=== PATIENT | female | born 1965 | race Caucasian/White ===

== ENCOUNTER 2016-11-01 08:27 | Emergency (ER) | payer OTHER ==
[2016-11-01 08:44] VITALS: PULSE 84
[2016-11-01 08:50] VITALS: RESP 16
[2016-11-01] MEDS ORDERED: KETOROLAC 60 MG/2 ML VIAL IM STA (09:04)
--- NOTE | 2016-11-01 09:09 | ED ---
Lower Extremity Injury HPI - General Chief Complaint: Extremity Injury, Lower Stated Complaint: Knee pain Time Seen by Provider: 11/01/16 08:40 Source: patient, RN notes reviewed Mode of arrival: wheelchair Limitations: no limitations - History of Present Illness Initial Comments: Patient is a 51-year-old female presents to the emergency room for evaluation of right knee pain. Patient states she has a history of arthritis in both her knees. Patient states she had a left knee replacement by Dr. Matamoros. Patient states that she was at work yesterday she felt a sharp pain behind her knee that caused her knee to buckle. Patient states she has been having pain behind her patella ever since. Patient states she has been taking Aleve with no relief of symptoms. Patient denies any numbness or tingling in her toes. Patient denies any certain injury before the pain began. Patient denies any increased swelling or bruising. Patient states it's very tender on palpation. - Related Data Home Medications Medication Instructions Recorded Confirmed [id number] Acid 3 cap PO DAILY 11/01/16 11/01/16 [-U Capsule (formulary)] Previous Rx's Medication Instructions Recorded Naproxen [Naprosyn] 500 mg PO Q12HR PRN #20 tab 11/01/16 Allergies Allergy/AdvReac Type Severity Reaction Status Date / Time metal Allergy Swelling Uncoded 11/01/16 08:44 Review of Systems ROS Statement: Those systems with pertinent positive or pertinent negative responses have been documented in the HPI. ROS Other: All systems not noted in ROS Statement are negative. Past Medical History Additional Past Medical History / Comment(s): eczema, anemia History of Any Multi-Drug Resistant Organisms: None Reported Additional Past Surgical History / Comment(s): left knee replacement, fibroid tumor removal Past Psychological History: No Psychological Hx Reported Smoking Status: Never smoker Past Alcohol Use History: None Reported Past Drug Use History: None Reported General Exam - General Exam Comments Initial Comments: Sitting in exam room, no acute distress. Limitations: no limitations General appearance: alert, in no apparent distress Head exam: Present: atraumatic, normocephalic, normal inspection Eye exam: Present: normal appearance ENT exam: Present: normal exam Neck exam: Present: normal inspection Respiratory exam: Absent: respiratory distress Right Upper Leg exam: Present: normal inspection Knee exam: Present: normal inspection, full ROM, tenderness (Tenderness on palpating over anterior patella). Absent: swelling, deformity, crepitus Lower Leg exam: Present: normal inspection Neurovascular tendon exam: Present: no vascular compromise. Absent: pulse deficit (2+ dorsal pedal and posterior tibial pulses), abnormal cap refill ( Capillary refill less than 2 seconds) Back exam: Present: normal inspection Neurological exam: Present: alert, oriented X3, CN II-XII intact, normal gait Psychiatric exam: Present: normal affect, normal mood Skin exam: Present: warm, dry, intact, normal color. Absent: rash Course Vital Signs 11/01/16 11/01/16 11/01/16 08:38 08:46 09:58 Temperature 96.7 F L 96.7 F L 97.4 F L Pulse Rate 84 84 84 Respiratory 18 16 16 Rate Blood Pressure 159/84 159/84 135/79 O2 Sat by Pulse 99 99 100 Oximetry Medical Decision Making - Medical Decision Making Patient is a 51-year-old female presents emergency room for evaluation of right knee pain. Right knee x-ray suggestive of arthritis. Patient placed in an Bennie wrap and advised to follow-up with her surgeon or office specialist on- call. Patient states she understands everything that was discussed with her. Return parameters discussed. Case discussed with Dr. Eric. - Radiology Data Radiology results: report reviewed, image reviewed Disposition Clinical Impression: Osteoarthritis of right knee Disposition: HOME SELF-CARE Condition: Good Instructions: Osteoarthritis (ED) Additional Instructions: Ice on and off for 10-15 minutes for the next 24-48 hours. Take Tylenol or Motrin as needed for pain. Please follow-up with office specialist for further evaluation. If new symptoms develop or symptoms worsen, please return to the ER. Prescriptions: Naproxen [Naprosyn] 500 mg PO Q12HR PRN #20 tab PRN Reason: Pain Referrals: Michael Brunson MD [Primary Care Provider] - 1-2 days Dann Wiley MD [STAFF PHYSICIAN] - 1-2 days Time of Disposition: 09:49
--- NOTE | 2016-11-01 09:28 | XR ---
EXAMINATION TYPE: XR knee complete RT DATE OF EXAM ORDERED: 11/01/2016 HISTORY: Pain. COMPARISON: None. FINDINGS: There is peaking of intercondylar spines. There is medial joint space loss. There is remod eling change in the medial compartment as well as the patellofemoral joint. No definite joint effusio n is seen. No acute osseous lesion is seen. IMPRESSION: MODERATE OSTEOARTHRITIS.
[2016-11-01 09:59] VITALS: BP 135/79; TEMP 97.4
== END 2016-11-01 10:08 | disposition home or self-care (01) ==
LOC: EC 08:27
DX: M17.11 Unilateral primary osteoarthritis, right knee (principal); Z79.899 Other long term (current) drug therapy; Z91.09 Other allergy status, other than to drugs and biological substances
CPT/HCPCS: 73562; 99283; 96372; J1885

== ENCOUNTER 2017-09-24 14:36 | Emergency (ER) | payer OTHER ==
[2017-09-24 14:42] VITALS: RESP 18
[2017-09-24] MEDS ORDERED: SODIUM CHLORIDE 0.9% 500 ML IV STA (14:47)
[2017-09-24 15:07] LABS: Basophils % (A) 0 %; Eosinophils # (A) 0.2 k/uL (0-0.7); Eosinophils % (A) 2 %; HCT 41.4 % (34.0-46.0); HGB 13.2 gm/dL (11.4-16.0); Lymphocytes # (A) 2.7 k/uL (1.0-4.8); Lymphocytes % (A) 31 %; MCH 25.1 pg (25.0-35.0); MCV 78.4 fL (80.0-100.0); Monocytes # (A) 0.5 k/uL (0-1.0); Monocytes % (A) 5 %; Neutrophils # (A) 5.2 k/uL (1.3-7.7); Neutrophils % (A) 60 %; Platelet Count 326 k/uL (150-450); RBC 5.27 m/uL (3.80-5.40); RDW 14.8 % (11.5-15.5); WBC 8.8 k/uL (3.8-10.6)
[2017-09-24 15:09] LABS: Appearance,Urine Clear (Clear); Bacteria,Urine Rare /hpf; Bilirubin,Urine Negative (Negative); Blood,Urine Negative (Negative); Color,Urine Yellow; Glucose,Urine (UA) Negative (Negative); Hyaline Casts,Urine 4 /lpf (0-2); Ketones,Urine 1+ (Negative); Leukocyte Esterase,Urine Trace (Negative); Mucus,Urine Few /hpf; Nitrite,Urine Negative (Negative); PH, Urine 5.5 (5.0-8.0); Protein,Urine Trace (Negative); RBC,Urine 2 /hpf (0-5); Specific Gravity,Urine 1.029 (1.001-1.035); Squamous Epithelial Cell,Urine 2 /hpf (0-4); Urobilinogen,Urine <2.0 mg/dL (<2.0); WBC,Urine 2 /hpf (0-5)
--- NOTE | 2017-09-24 15:14 | XR ---
EXAMINATION TYPE: XR KUB DATE OF EXAM: 09/24/2017 COMPARISON: NONE HISTORY: Abdominal pain TECHNIQUE: One view abdominal series FINDINGS: The osseous structures are intact. The bowel gas pattern is nonspecific. Calcification pelvis is non specific but likely vascular. Air seen throughout both large and small bowel loops in a nonspecific p attern. Arthropathy of the hips. Correlate for femoral acetabular impingement.. IMPRESSION: 1. Nonspecific abdomen. Air is seen throughout both large and small bowel loops in a nonspecific pat tern. Correlate for ileus or enteritis.
[2017-09-24 15:20] LABS: Partial Thromboplastin Time 23.1 sec (22.0-30.0); Prothrombin Time 10.1 sec (9.0-12.0)
[2017-09-24 15:21] LABS: ALT 23 U/L (9-52); AST 24 U/L (14-36); Albumin 3.2 g/dL (3.5-5.0); Alkaline Phosphatase 80 U/L (38-126); Amylase 71 U/L (30-110); Anion Gap 11 mmol/L; Blood Urea Nitrogen 18 mg/dL (7-17); Calcium 8.9 mg/dL (8.4-10.2); Carbon Dioxide 23 mmol/L (22-30); Chloride 109 mmol/L (98-107); Glucose 97 mg/dL (74-99); Lipase 66 U/L (23-300); Potassium 4.2 mmol/L (3.5-5.1); Sodium 143 mmol/L (137-145); Total Bilirubin 0.2 mg/dL (0.2-1.3); Total Protein 5.6 g/dL (6.3-8.2)
--- NOTE | 2017-09-24 15:30 | ED ---
Abdominal Pain HPI - General Chief Complaint: Abdominal Pain Stated Complaint: ABDOMINAL PAIN Time Seen by Provider: 09/24/17 14:45 Source: patient, EMS, RN notes reviewed Mode of arrival: EMS Limitations: no limitations - History of Present Illness Initial Comments: This is a 52-year-old female presents emergency Department with complaints of intermittent abdominal pain and cramping. She states it started while giving plasma today. Patient states that she's been having some her symptoms after giving plasma the last month. She states that she's never had any issues like this in the past. She does state loss or far she's had some diarrhea abdominal cramping bloating. Patient doesn't dysuria no hematuria. She states that she' s had no abdominal issues in the past. She denies any current chest pain, shortness breath, headache, dizziness. She states that she went to her primary care physician if she is having issues earlier this month and states that she had a normal workup which included EKG, lab work. Patient denies any other symptoms at this time. - Related Data Home Medications Medication Instructions Recorded Confirmed No Known Home Medications [No 09/24/17 09/24/17 Known Home Medications] Allergies Allergy/AdvReac Type Severity Reaction Status Date / Time metal Allergy Swelling Uncoded 09/24/17 14:39 Review of Systems ROS Statement: Those systems with pertinent positive or pertinent negative responses have been documented in the HPI. ROS Other: All systems not noted in ROS Statement are negative. Past Medical History Additional Past Medical History / Comment(s): eczema, anemia History of Any Multi-Drug Resistant Organisms: None Reported Additional Past Surgical History / Comment(s): left knee replacement, fibroid tumor removal Past Psychological History: No Psychological Hx Reported Smoking Status: Never smoker Past Alcohol Use History: None Reported Past Drug Use History: None Reported General Exam Limitations: no limitations General appearance: alert, in no apparent distress Head exam: Present: atraumatic, normocephalic, normal inspection Eye exam: Present: normal appearance, PERRL, EOMI. Absent: scleral icterus, conjunctival injection, periorbital swelling ENT exam: Present: normal exam, normal oropharynx, mucous membranes moist Neck exam: Present: normal inspection, full ROM. Absent: tenderness, meningismus, lymphadenopathy Respiratory exam: Present: normal lung sounds bilaterally. Absent: respiratory distress, wheezes, rales, rhonchi, stridor Cardiovascular Exam: Present: regular rate, normal rhythm, normal heart sounds. Absent: systolic murmur, diastolic murmur, rubs, gallop, clicks GI/Abdominal exam: Present: soft, tenderness (Mild diffuse no localized bone tenderness), hyperactive bowel sounds. Absent: distended, guarding, rebound, rigid Back exam: Absent: CVA tenderness (R), CVA tenderness (L) Skin exam: Present: warm, dry, intact, normal color. Absent: rash Course Vital Signs 09/24/17 14:39 Temperature 97.9 F Pulse Rate 86 Respiratory 18 Rate Blood Pressure 148/86 O2 Sat by Pulse 100 Oximetry Medical Decision Making - Medical Decision Making 52-year-old female presents from for abdominal cramping gas. Patient has normal lab work, x-ray consistent with enteritis. Patient's symptom or worsened by donated plasma this time. Patient will follow-up with PCP return parameters were discussed. - Lab Data Result diagrams: 09/24/17 14:42 09/24/17 14:42 Lab Results 09/24/17 09/24/17 09/24/17 Range/Units 14:42 14:42 14:42 WBC 8.8 (3.8-10.6) k/uL RBC 5.27 (3.80-5.40) m/uL Hgb 13.2 (11.4-16.0) gm/dL Hct 41.4 (34.0-46.0) % MCV 78.4 L (80.0-100.0) fL MCH 25.1 (25.0-35.0) pg MCHC 32.0 (31.0-37.0) g/dL RDW 14.8 (11.5-15.5) % Plt Count 326 (150-450) k/uL Neutrophils % 60 % Lymphocytes % 31 % Monocytes % 5 % Eosinophils % 2 % Basophils % 0 % Neutrophils # 5.2 (1.3-7.7) k/uL Lymphocytes # 2.7 (1.0-4.8) k/uL Monocytes # 0.5 (0-1.0) k/uL Eosinophils # 0.2 (0-0.7) k/uL Basophils # 0.0 (0-0.2) k/uL PT (9.0-12.0) sec INR (<1.2) APTT (22.0-30.0) sec Sodium 143 (137-145) mmol/L Potassium 4.2 (3.5-5.1) mmol/L Chloride 109 H (98-107) mmol/L Carbon Dioxide 23 (22-30) mmol/L Anion Gap 11 mmol/L BUN 18 H (7-17) mg/dL Creatinine 0.80 (0.52-1.04) mg/dL Est GFR (CKD-EPI)AfAm >90 (>60 ml/min/1.73 sqM) Est GFR (CKD-EPI)NonAf 87 (>60 ml/min/1.73 sqM) Glucose 97 (74-99) mg/dL Plasma Lactic Acid Darnell 0.8 (0.7-2.0) mmol/L Calcium 8.9 (8.4-10.2) mg/dL Total Bilirubin 0.2 (0.2-1.3) mg/dL AST 24 (14-36) U/L ALT 23 (9-52) U/L Alkaline Phosphatase 80 (38-126) U/L Total Protein 5.6 L (6.3-8.2) g/dL Albumin 3.2 L (3.5-5.0) g/dL Amylase 71 (30-110) U/L Lipase 66 (23-300) U/L Urine Color Urine Appearance (Clear) Urine pH (5.0-8.0) Ur Specific Villas (1.001-1.035) Urine Protein (Negative) Urine Glucose (UA) (Negative) Urine Ketones (Negative) Urine Blood (Negative) Urine Nitrite (Negative) Urine Bilirubin (Negative) Urine Urobilinogen (<2.0) mg/dL Ur Leukocyte Esterase (Negative) Urine RBC (0-5) /hpf Urine WBC (0-5) /hpf Ur Squamous Epith Cells (0-4) /hpf Urine Bacteria (None) /hpf Hyaline Casts (0-2) /lpf Urine Mucus (None) /hpf 09/24/17 09/24/17 Range/Units 14:42 14:42 WBC (3.8-10.6) k/uL RBC (3.80-5.40) m/uL Hgb (11.4-16.0) gm/dL Hct (34.0-46.0) % MCV (80.0-100.0) fL MCH (25.0-35.0) pg MCHC (31.0-37.0) g/dL RDW (11.5-15.5) % Plt Count (150-450) k/uL Neutrophils % % Lymphocytes % % Monocytes % % Eosinophils % % Basophils % % Neutrophils # (1.3-7.7) k/uL Lymphocytes # (1.0-4.8) k/uL Monocytes # (0-1.0) k/uL Eosinophils # (0-0.7) k/uL Basophils # (0-0.2) k/uL PT 10.1 (9.0-12.0) sec INR 1.0 (<1.2) APTT 23.1 (22.0-30.0) sec Sodium (137-145) mmol/L Potassium (3.5-5.1) mmol/L Chloride (98-107) mmol/L Carbon Dioxide (22-30) mmol/L Anion Gap mmol/L BUN (7-17) mg/dL Creatinine (0.52-1.04) mg/dL Est GFR (CKD-EPI)AfAm (>60 ml/min/1.73 sqM) Est GFR (CKD-EPI)NonAf (>60 ml/min/1.73 sqM) Glucose (74-99) mg/dL Plasma Lactic Acid Darnell (0.7-2.0) mmol/L Calcium (8.4-10.2) mg/dL Total Bilirubin (0.2-1.3) mg/dL AST (14-36) U/L ALT (9-52) U/L Alkaline Phosphatase (38-126) U/L Total Protein (6.3-8.2) g/dL Albumin (3.5-5.0) g/dL Amylase (30-110) U/L Lipase (23-300) U/L Urine Color Yellow Urine Appearance Clear (Clear) Urine pH 5.5 (5.0-8.0) Ur Specific Vill[place] 1.029 (1.001-1.035) Urine Protein Trace H (Negative) Urine Glucose (UA) Negative (Negative) Urine Ketones 1+ H (Negative) Urine Blood Negative (Negative) Urine Nitrite Negative (Negative) Urine Bilirubin Negative (Negative) Urine Urobilinogen <2.0 (<2.0) mg/dL Ur Leukocyte Esterase Trace H (Negative) Urine RBC 2 (0-5) /hpf Urine WBC 2 (0-5) /hpf Ur Squamous Epith Cells 2 (0-4) /hpf Urine Bacteria Rare H (None) /hpf Hyaline Casts 4 H (0-2) /lpf Urine Mucus Few H (None) /hpf - EKG Data EKG Comments: EKG performed at 16:01 normal sinus rhythm rate 88 TX 146 QRS 372/450 Disposition Clinical Impression: Enteritis, Abdominal pain Disposition: HOME SELF-CARE Condition: Stable Instructions: Abdominal Pain (ED) Additional Instructions: Please return to the Emergency Department if symptoms worsen or any other concerns. Is patient prescribed a controlled substance at d/c from ED?: No Referrals: Neftaly Rose MD [Primary Care Provider] - 1-2 days Time of Disposition: 15:30
[2017-09-24] MEDS ORDERED: DICYCLOMINE 20 MG TAB PO STA (16:26)
[2017-09-24 16:41] VITALS: BP 133/67; PULSE 70; TEMP 98
== END 2017-09-24 16:40 | disposition home or self-care (01) ==
LOC: EC 14:36
DX: K52.9 Noninfective gastroenteritis and colitis, unspecified (principal); Z96.652 Presence of left artificial knee joint; Z91.048 Other nonmedicinal substance allergy status
CPT/HCPCS: 36415; 74018; 80053; 81001; 82150; 83605; 83690; 85025; 85610; 85730; 93005; 96360; 99285

== ENCOUNTER 2018-01-08 21:10 | Emergency (ER) | payer SELFPAY ==
[2018-01-08 21:16] VITALS: BP 138/76; PULSE 88; RESP 18; TEMP 97.8
--- NOTE | 2018-01-08 22:01 | ED ---
General Adult HPI - General Chief complaint: Recheck/Abnormal Lab/Rx Stated complaint: Poss Scabbies Source: EMS Mode of arrival: EMS Limitations: no limitations - History of Present Illness Initial comments: Dictation was produced using [facility] dictation software. please excuse any grammatical, word or spelling errors. Chief Complaint: 52-year-old female past medical history of eczema anemia and autism presents with rash. History of Present Illness: Patient is a 52-year-old female presents with a rash to her fingers, webspaces. 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 She states that the people she thinks Has lice and scabies. Patient has no other complaints. Having had lice and scabies in the past. The ROS documented in this emergency department record has been reviewed and confirmed by me. Those systems with pertinent positive or negative responses have been documented in the HPI. All other systems are other negative and/or noncontributory. - Related Data Previous Rx's Medication Instructions Recorded Ivermectin 21 mg PO Q10D #14 tablet 01/08/18 Permethrin 5% Cream [Elimite] 1 applic TOPICAL ONCE #1 bottle 01/08/18 Allergies Allergy/AdvReac Type Severity Reaction Status Date / Time metal Allergy Swelling Uncoded 01/08/18 21:16 Review of Systems ROS Statement: Those systems with pertinent positive or pertinent negative responses have been documented in the HPI. ROS Other: All systems not noted in ROS Statement are negative. Past Medical History Additional Past Medical History / Comment(s): eczema, anemia, autsitc History of Any Multi-Drug Resistant Organisms: None Reported Additional Past Surgical History / Comment(s): left knee replacement, fibroid tumor removal Past Psychological History: No Psychological Hx Reported Smoking Status: Never smoker Past Alcohol Use History: None Reported Past Drug Use History: None Reported General Exam - General Exam Comments Initial Comments: PHYSICAL EXAM: General Impression: Alert and oriented x3, not in acute distress HEENT: Normocephalic atraumatic, extra-ocular movements intact, pupils equal and reactive to light bilaterally, mucous membranes moist. Cardiovascular: Heart regular rate and rhythm, S1&S2 audible, no murmurs, rubs or gallops Chest: Lungs clear to auscultation bilaterally, no rhonchi, no wheeze, no rales Abdomen: Bowel sounds present, abdomen soft, non-tender, non-distended, no organomegaly Musculoskeletal: Pulses present and equal in all extremities, no peripheral edema Motor: Power 5/5 bilaterally, no focal deficits noted Neurological: CN II-XII grossly intact, no focal motor or sensory deficits noted Skin: Linear lesions to the dorsal aspect of the hand, webspaces. Psych: Anxious Limitations: no limitations Course Vital Signs 01/08/18 21:13 Temperature 97.8 F Pulse Rate 88 Respiratory 18 Rate Blood Pressure 138/76 O2 Sat by Pulse 99 Oximetry Medical Decision Making - Medical Decision Making ED course: 52-year-old female presents with scabies and lice infestation. Vital signs upon arrival are within normal limits. Physical examination is otherwise benign except for skin lesions. There were some nits noted in her hair. Patient prescription for permethrin and ivermectin. Disposition Clinical Impression: Scabies, Lice Disposition: HOME SELF-CARE Condition: Good Instructions: Scabies (ED), Body Lice (ED) Prescriptions: Ivermectin 21 mg PO Q10D #14 tablet Permethrin 5% Cream [Elimite] 1 applic TOPICAL ONCE #1 bottle Is patient prescribed a controlled substance at d/c from ED?: No Referrals: Neftaly Rose MD [Primary Care Provider] - 1-2 days Time of Disposition: 22:01
== END 2018-01-08 22:34 | disposition home or self-care (01) ==
LOC: EC 21:10
DX: B86 Scabies (principal); B85.2 Pediculosis, unspecified; Z91.048 Other nonmedicinal substance allergy status; Z96.652 Presence of left artificial knee joint
CPT/HCPCS: 99283

== ENCOUNTER 2018-01-09 11:49 | Emergency (ER) | payer SELFPAY ==
[2018-01-09 12:01] VITALS: BP 164/79; PULSE 79; RESP 20; TEMP 98.1
[2018-01-09] MEDS ORDERED: diphenhydrAMINE 50 MG CAP PO STA (12:41)
[2018-01-09] MEDS ORDERED: IVERMECTIN 3 MG TABLET PO STA (13:24)
--- NOTE | 2018-01-09 13:28 | ED ---
Skin/Abscess/FB HPI - General Chief complaint: Skin/Abscess/Foreign Body Stated complaint: scabies Time Seen by Provider: 01/09/18 12:14 Source: patient, RN notes reviewed, old records reviewed Mode of arrival: EMS Limitations: no limitations - History of Present Illness Initial comments: This is a 52 year old female with CC of scabies and lice infestation. Patient was seen in ED yesterday evening for same complaints. Patient arrives today via EMS with no transportation at home. Patient reports that her perscriptions cost too much money, so therefore she is here for treatment. Patient denies any other symptoms. - Related Data Previous Rx's Medication Instructions Recorded Ivermectin 21 mg PO Q10D #14 tablet 01/08/18 Permethrin 5% Cream [Elimite] 1 applic TOPICAL ONCE #1 bottle 01/08/18 diphenhydrAMINE [Benadryl] 25 mg PO TID PRN #20 capsule 01/09/18 Permethrin 5% Cream [Elimite] 1 applic TOPICAL ONCE #1 cream..g. 01/14/18 hydrOXYzine HCL [Atarax] 50 mg PO TID PRN #18 tab 01/14/18 predniSONE 20 mg PO BID #8 tab 01/14/18 Allergies Allergy/AdvReac Type Severity Reaction Status Date / Time metal Allergy Swelling Uncoded 01/09/18 12:01 Review of Systems ROS Statement: Those systems with pertinent positive or pertinent negative responses have been documented in the HPI. ROS Other: All systems not noted in ROS Statement are negative. Past Medical History Additional Past Medical History / Comment(s): eczema, anemia, autsitc History of Any Multi-Drug Resistant Organisms: None Reported Additional Past Surgical History / Comment(s): left knee replacement, fibroid tumor removal Past Psychological History: No Psychological Hx Reported Smoking Status: Never smoker Past Alcohol Use History: None Reported Past Drug Use History: None Reported General Exam - General Exam Comments Initial Comments: This is a 52 year old female, no distress. Limitations: no limitations General appearance: alert, in no apparent distress Head exam: Present: atraumatic, normocephalic, normal inspection Eye exam: Present: normal appearance, PERRL, EOMI. Absent: scleral icterus, conjunctival injection, periorbital swelling ENT exam: Present: normal exam, mucous membranes moist Neck exam: Present: normal inspection. Absent: tenderness, meningismus, lymphadenopathy Respiratory exam: Present: normal lung sounds bilaterally. Absent: respiratory distress, wheezes, rales, rhonchi, stridor Cardiovascular Exam: Present: regular rate, normal rhythm, normal heart sounds. Absent: systolic murmur, diastolic murmur, rubs, gallop, clicks Extremities exam: Present: normal inspection, full ROM, normal capillary refill. Absent: tenderness, pedal edema, joint swelling, calf tenderness Back exam: Present: normal inspection Neurological exam: Present: alert, oriented X3, CN II-XII intact Psychiatric exam: Present: normal affect, normal mood Skin exam: Present: warm, dry, intact, normal color, other (hair is oiled and pulled back. Skin has rash between fingers, toes, and neck consistent with scabies. ). Absent: rash Course Vital Signs 01/09/18 11:55 Temperature 98.1 F Pulse Rate 79 Respiratory 20 Rate Blood Pressure 164/79 O2 Sat by Pulse 99 Oximetry Medical Decision Making - Medical Decision Making 52 year old female presents with scabies and lice infestation. She does not havve the money for her Rx from yesterday. Patient was given 1 PO ivermectin and benadryl. Discussed that patient needs to purchase OTC treatments as well, which may be cheaper. Patient agrees to treatment plan and will comply. Disposition Clinical Impression: Scabies, Lice Disposition: HOME SELF-CARE Condition: Good Instructions: Permethrin (On the skin) Additional Instructions: Patient should fill the prescriptions that were prescribed yesterday evening. Due the cream as directed. Return to emergency department if any alarming signs or symptoms occur. Prescriptions: diphenhydrAMINE [Benadryl] 25 mg PO TID PRN #20 capsule PRN Reason: Pain Is patient prescribed a controlled substance at d/c from ED?: No Referrals: Neftaly Rose MD [Primary Care Provider] - 1-2 days Time of Disposition: 13:27
== END 2018-01-09 13:43 | disposition home or self-care (01) ==
LOC: EC 11:49
DX: B85.2 Pediculosis, unspecified (principal); B86 Scabies; Z91.048 Other nonmedicinal substance allergy status
CPT/HCPCS: 99283

== ENCOUNTER 2018-01-14 02:04 | Emergency (ER) | payer OTHER ==
[2018-01-14 02:28] VITALS: BP 152/80; PULSE 82; RESP 18; TEMP 97
[2018-01-14] MEDS ORDERED: PROPARACAINE 0.5% OPHTH DROPS 15 ML BTL BOTH EYES STA (02:40)
[2018-01-14] MEDS ORDERED: hydrOXYzine HCL 25 MG TAB PO STA (03:04)
--- NOTE | 2018-01-14 03:28 | ED ---
Skin/Abscess/FB HPI - General Chief complaint: Skin/Abscess/Foreign Body Stated complaint: bug bite Time Seen by Provider: 01/14/18 02:23 Source: patient Mode of arrival: EMS Limitations: no limitations - History of Present Illness Initial comments: This patient is a 52-year-old woman who states that she is having itching and burning to her skin tonight. She states she was recently diagnosed with scabies , being seen here on January 08. She states that she did take the treatment and the following day but she continues to have itching. MD complaint: rash, other (Rhinitis) Onset/Timin -: week(s) Tetanus Up to Date: yes Location: generalized - Related Data Previous Rx's Medication Instructions Recorded Ivermectin 21 mg PO Q10D #14 tablet 01/08/18 Permethrin 5% Cream [Elimite] 1 applic TOPICAL ONCE #1 bottle 01/08/18 diphenhydrAMINE [Benadryl] 25 mg PO TID PRN #20 capsule 01/09/18 Permethrin 5% Cream [Elimite] 1 applic TOPICAL ONCE #1 cream..g. 01/14/18 hydrOXYzine HCL [Atarax] 50 mg PO TID PRN #18 tab 01/14/18 predniSONE 20 mg PO BID #8 tab 01/14/18 Allergies Allergy/AdvReac Type Severity Reaction Status Date / Time metal Allergy Swelling Uncoded 01/09/18 12:01 Review of Systems ROS Statement: Those systems with pertinent positive or pertinent negative responses have been documented in the HPI. ROS Other: All systems not noted in ROS Statement are negative. Constitutional: Denies: fever, chills Eyes: Denies: eye pain, vision change Respiratory: Denies: cough, dyspnea Cardiovascular: Denies: chest pain, palpitations Skin: Reports: rash, pruritus Neurological: Denies: headache Past Medical History Additional Past Medical History / Comment(s): eczema, anemia, autsitc, asperger History of Any Multi-Drug Resistant Organisms: None Reported Additional Past Surgical History / Comment(s): left knee replacement, fibroid tumor removal Past Psychological History: No Psychological Hx Reported Smoking Status: Never smoker Past Alcohol Use History: None Reported Past Drug Use History: None Reported General Exam Limitations: no limitations General appearance: alert, in no apparent distress Head exam: Present: atraumatic, normocephalic Eye exam: Present: normal appearance. Absent: scleral icterus, conjunctival injection ENT exam: Present: normal oropharynx Respiratory exam: Present: normal lung sounds bilaterally. Absent: respiratory distress, wheezes Skin exam: Present: warm, dry, intact, normal color. Absent: rash, urticaria, vesicles, petechiae, pallor, mottled Course Vital Signs 01/14/18 02:05 Temperature 97.0 F L Pulse Rate 82 Respiratory 18 Rate Blood Pressure 152/80 O2 Sat by Pulse 100 Oximetry Disposition Clinical Impression: Generalized pruritus Disposition: HOME SELF-CARE Condition: Good Instructions: Scabies (ED) Prescriptions: hydrOXYzine HCL [Atarax] 50 mg PO TID PRN #18 tab PRN Reason: Itching Permethrin 5% Cream [Elimite] 1 applic TOPICAL ONCE #1 cream..g. predniSONE 20 mg PO BID #8 tab Is patient prescribed a controlled substance at d/c from ED?: No Referrals: Neftaly Rose MD [Primary Care Provider] - 1-2 days Marvin Ruth MD [STAFF PHYSICIAN] - 1-2 days
== END 2018-01-14 03:40 | disposition home or self-care (01) ==
LOC: EC 02:04
DX: L29.9 Pruritus, unspecified (principal); F84.0 Autistic disorder; Z96.652 Presence of left artificial knee joint; Z98.890 Other specified postprocedural states; Z91.048 Other nonmedicinal substance allergy status
CPT/HCPCS: 99283

== ENCOUNTER 2018-01-20 15:14 | Emergency (ER) | payer SELFPAY ==
[2018-01-20 15:30] VITALS: BP 142/80; PULSE 93; RESP 18; TEMP 99.3
--- NOTE | 2018-01-20 17:00 | ED ---
General Adult HPI - General Chief complaint: Recheck/Abnormal Lab/Rx Stated complaint: Recheck Time Seen by Provider: 01/20/18 16:03 Source: patient, RN notes reviewed Mode of arrival: ambulatory Limitations: no limitations - History of Present Illness Initial comments: This is a 52-year-old female who presents to the emergency department for lice recheck. Patient states that she has treated herself twice for lice over the past couple of weeks. She states she was told to come to the emergency department by her boss for a recheck. Patient is worried that she may be reinfected. Denies recent fevers or chills, chest pain or shortness breath, abdominal pain, nausea or vomiting. States that she has not noticed any bugs or nits herself. - Related Data Home Medications Medication Instructions Recorded Confirmed Ibuprofen [Motrin Ib] 400 mg PO Q6H PRN 01/20/18 01/20/18 Previous Rx's Medication Instructions Recorded Ivermectin 21 mg PO Q10D #14 tablet 01/08/18 diphenhydrAMINE [Benadryl] 25 mg PO TID PRN #20 capsule 01/09/18 Permethrin 5% Cream [Elimite] 1 applic TOPICAL ONCE #1 cream..g. 01/14/18 hydrOXYzine HCL [Atarax] 50 mg PO TID PRN #18 tab 01/14/18 predniSONE 20 mg PO BID #8 tab 01/14/18 Allergies Allergy/AdvReac Type Severity Reaction Status Date / Time metal Allergy Swelling Uncoded 01/20/18 16:25 Review of Systems ROS Statement: Those systems with pertinent positive or pertinent negative responses have been documented in the HPI. ROS Other: All systems not noted in ROS Statement are negative. Past Medical History Past Medical History: No Reported History Additional Past Medical History / Comment(s): eczema, anemia, autsitc, asperger History of Any Multi-Drug Resistant Organisms: None Reported Past Surgical History: No Surgical Hx Reported Additional Past Surgical History / Comment(s): left knee replacement, fibroid tumor removal Past Psychological History: No Psychological Hx Reported Smoking Status: Never smoker Past Alcohol Use History: None Reported Past Drug Use History: None Reported General Exam - General Exam Comments Initial Comments: General: Awake and alert, well-developed; in no apparent distress. HEENT: Head atraumatic, normocephalic. Scalp is checked for lice and no lice or nits are identified. Pupils are equal, round and reactive to light. Extraocular movements intact. Oropharynx moist without erythema or exudate. Neck: Supple. Normal ROM. Cardiovascular: Regular rate and rhythm. No murmurs, rubs or gallops. Chest symmetrical. Respiratory: Lungs clear to auscultation bilaterally. No wheezes, rales or rhonchi. Normal respiratory effort with no use of accessory muscles. Musculoskeletal: Normal ROM, no tenderness bilateral upper and lower extremities. Ambulating normally. Skin: [place], warm and dry without rashes or lesions. Neurological: Alert and oriented x3. CN II-XII grossly intact. Speech is fluent and answers are appropriate. No focal neuro deficits. Psychiatric: Normal mood and affect. No overt signs of depression or anxiety noted. Limitations: no limitations Course Vital Signs 01/20/18 15:26 Temperature 99.3 F Pulse Rate 93 Respiratory 18 Rate Blood Pressure 142/80 O2 Sat by Pulse 98 Oximetry Medical Decision Making - Medical Decision Making This is a 52-year-old female who presents to the emergency department with chief complaint of lice recheck. Patient was told to come to the emergency department by her boss for recheck of lice. She states she has been treated twice in the past couple weeks for lice. On examination, no nits or bugs are identified within the scalp. Patient's vital signs stable and she is in no acute distress. She will be discharged home at this time. She is in agreement and voices understanding. All questions were answered. Disposition Clinical Impression: Screening for head lice Narrative: negative for lice Disposition: HOME SELF-CARE Condition: Good Instructions: Normal Exam (ED) Additional Instructions: Screening for lice is negative. Please follow up with primary care provider within 1-2 days. Return to emergency department if symptoms should worsen or any concerns arise. Is patient prescribed a controlled substance at d/c from ED?: No Referrals: Neftaly Rose MD [Primary Care Provider] - 1-2 days Time of Disposition: 17:00
== END 2018-01-20 17:04 | disposition home or self-care (01) ==
LOC: EC 15:14
DX: Z20.7 Contact with and (suspected) exposure to pediculosis, acariasis and other infestations (principal); Z91.09 Other allergy status, other than to drugs and biological substances; Z96.652 Presence of left artificial knee joint
CPT/HCPCS: 99282

== ENCOUNTER 2018-01-31 15:27 | Emergency (ER) | payer OTHER ==
[2018-01-31 15:32] VITALS: RESP 18
[2018-01-31] MEDS ORDERED: SULFAMETHOX-TMP 800-160MG 1 EACH TAB PO STA (16:42)
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
[2018-01-31] MEDS ORDERED: LIDOCAINE 1% INJ 10MG/ML (20 ML MDV) SQ STA (17:08)
[2018-01-31 17:30] LABS: Basophils % (A) 0 %; Eosinophils # (A) 0.2 k/uL (0-0.7); Eosinophils % (A) 3 %; HCT 41.1 % (34.0-46.0); HGB 13.3 gm/dL (11.4-16.0); Lymphocytes # (A) 2.5 k/uL (1.0-4.8); Lymphocytes % (A) 32 %; MCHC 32.5 g/dL (31.0-37.0); MCV 80.2 fL (80.0-100.0); Mean Platelet Volume 6.8; Monocytes # (A) 0.4 k/uL (0-1.0); Monocytes % (A) 5 %; Neutrophils # (A) 4.7 k/uL (1.3-7.7); Neutrophils % (A) 59 %; Platelet Count 315 k/uL (150-450); RBC 5.12 m/uL (3.80-5.40); RDW 14.4 % (11.5-15.5); WBC 7.9 k/uL (3.8-10.6)
[2018-01-31 17:35] LABS: Appearance,Urine Clear (Clear); Bilirubin,Urine Negative (Negative); Blood,Urine Negative (Negative); Color,Urine Yellow; Glucose,Urine (UA) Negative (Negative); Ketones,Urine Negative (Negative); Leukocyte Esterase,Urine Small (Negative); Mucus,Urine Rare /hpf; Nitrite,Urine Negative (Negative); PH, Urine 5.5 (5.0-8.0); Protein,Urine Negative (Negative); RBC,Urine 1 /hpf (0-5); Specific Gravity,Urine 1.021 (1.001-1.035); Squamous Epithelial Cell,Urine <1 /hpf (0-4); Urobilinogen,Urine <2.0 mg/dL (<2.0); WBC,Urine 1 /hpf (0-5)
[2018-01-31 17:45] LABS: ALT 27 U/L (9-52); AST 27 U/L (14-36); Albumin 3.9 g/dL (3.5-5.0); Alkaline Phosphatase 116 U/L (38-126); Anion Gap 9 mmol/L; Blood Urea Nitrogen 22 mg/dL (7-17); Calcium 9.1 mg/dL (8.4-10.2); Carbon Dioxide 25 mmol/L (22-30); Chloride 105 mmol/L (98-107); Glucose 116 mg/dL (74-99); Lipase 119 U/L (23-300); Potassium 4.3 mmol/L (3.5-5.1); Sodium 139 mmol/L (137-145); Total Bilirubin 0.3 mg/dL (0.2-1.3); Total Protein 7.1 g/dL (6.3-8.2)
[2018-01-31 18:23] VITALS: BP 129/79; PULSE 82; TEMP 98.1
== END 2018-01-31 18:23 | disposition home or self-care (01) ==
LOC: EC 15:27
DX: L03.011 Cellulitis of right finger (principal); R10.9 Unspecified abdominal pain; R11.0 Nausea; Z91.048 Other nonmedicinal substance allergy status
CPT/HCPCS: 99284; 10160; 36415; 80053; 83690; 85025; 81001; 81025; J2001

== ENCOUNTER 2018-02-02 19:52 | Emergency (ER) | payer OTHER ==
[2018-02-02 20:14] VITALS: BP 151/59; PULSE 87; RESP 18; TEMP 97.9
--- NOTE | 2018-02-02 20:41 | ED ---
General Adult HPI - General Chief complaint: Recheck/Abnormal Lab/Rx Stated complaint: ear pain/dizziness Time Seen by Provider: 02/02/18 20:23 Source: patient, RN notes reviewed Mode of arrival: ambulatory Limitations: no limitations - History of Present Illness Initial comments: This a 52-year-old female presents emergency Department chief complaint of itchiness in her ear, worms in her stool. Patient states that she felt that something called her ear while she was sleeping but ignored it that time. She states that it feels itchy at this time and seems concerned. She denies any associated pain, fever, chills or headache. She denies any chest pain or shortness breath. Patient was seen in emergency room yesterday for some abdominal issues had a complete workup which was negative for any acute findings. Patient though states that she noticed some worms in her stool and she's been having some anal itching. Patient denies any dysuria, hematuria, nausea, vomiting diarrhea . - Related Data Previous Rx's Medication Instructions Recorded Sulfamethox-Tmp 800-160Mg [Bactrim 1 tab PO Q12HR 7 Days #14 tab 01/31/18 DS 800-160 mg] Albendazole [Albenza] 200 mg PO ONCE #2 tablet 02/02/18 Allergies Allergy/AdvReac Type Severity Reaction Status Date / Time metal Allergy Swelling Uncoded 02/02/18 20:13 Review of Systems ROS Statement: Those systems with pertinent positive or pertinent negative responses have been documented in the HPI. ROS Other: All systems not noted in ROS Statement are negative. Past Medical History Past Medical History: No Reported History Additional Past Medical History / Comment(s): eczema, anemia, autsitc, asperger History of Any Multi-Drug Resistant Organisms: None Reported Past Surgical History: Joint Replacement, Orthopedic Surgery Additional Past Surgical History / Comment(s): left knee replacement, fibroid tumor removal Past Psychological History: No Psychological Hx Reported Smoking Status: Never smoker Past Alcohol Use History: None Reported Past Drug Use History: None Reported General Exam Limitations: no limitations General appearance: alert, in no apparent distress ENT exam: Present: normal exam, normal oropharynx, mucous membranes moist, TM's normal bilaterally, normal external ear exam Neck exam: Present: normal inspection, full ROM. Absent: tenderness, meningismus, lymphadenopathy Respiratory exam: Present: normal lung sounds bilaterally. Absent: respiratory distress, wheezes, rales, rhonchi, stridor Cardiovascular Exam: Present: regular rate, normal rhythm, normal heart sounds. Absent: systolic murmur, diastolic murmur, rubs, gallop, clicks GI/Abdominal exam: Present: soft, normal bowel sounds. Absent: distended, tenderness, guarding, rebound, rigid Skin exam: Present: warm, dry, intact, normal color. Absent: rash Course Vital Signs 02/02/18 20:11 Temperature 97.9 F Pulse Rate 87 Respiratory 18 Rate Blood Pressure 151/59 O2 Sat by Pulse 99 Oximetry Medical Decision Making - Medical Decision Making 52-year-old female presented for ear itching and worms in her stool. Patient has normal exam. Patient will be given For treatment of pinworms and she'll be given a prescription for stool studies outpatient at this time. Disposition Clinical Impression: Worms in stool, Ear itching, Pinworms Disposition: HOME SELF-CARE Condition: Stable Instructions: Pinworm Infection (ED) Additional Instructions: Please return to the Emergency Department if symptoms worsen or any other concerns. Prescriptions: Albendazole [Albenza] 200 mg PO ONCE #2 tablet Is patient prescribed a controlled substance at d/c from ED?: No Referrals: Neftaly Rose MD [Primary Care Provider] - 1-2 days Time of Disposition: 20:40
== END 2018-02-02 20:51 | disposition home or self-care (01) ==
LOC: EC 19:52
DX: B80 Enterobiasis (principal); H93.8X1 Other specified disorders of right ear; Z96.652 Presence of left artificial knee joint; Z91.048 Other nonmedicinal substance allergy status
CPT/HCPCS: 99284

== ENCOUNTER 2018-12-05 17:36 | Emergency (ER) | payer OTHER ==
[2018-12-05 17:49] VITALS: BP 136/68; PULSE 80; RESP 18; TEMP 98.4
[2018-12-05] MEDS ORDERED: SODIUM CHLORIDE 0.9% 1,000 ML IV ONE (18:41)
[2018-12-05] MEDS ORDERED: SODIUM CHLORIDE 0.9% 500 ML 500 ML IV ONE (18:41)
[2018-12-05] MEDS ORDERED: KETOROLAC 30 MG/ML 1 ML VIAL IVP STA (18:42)
[2018-12-05 19:19] LABS: Basophils % (A) 0 %; Eosinophils # (A) 0.3 k/uL (0-0.7); Eosinophils % (A) 3 %; HCT 39.3 % (34.0-46.0); HGB 12.7 gm/dL (11.4-16.0); Lymphocytes # (A) 2.6 k/uL (1.0-4.8); Lymphocytes % (A) 28 %; MCH 26.4 pg (25.0-35.0); MCHC 32.3 g/dL (31.0-37.0); MCV 81.8 fL (80.0-100.0); Mean Platelet Volume 6.4; Monocytes # (A) 0.5 k/uL (0-1.0); Monocytes % (A) 5 %; Neutrophils # (A) 5.9 k/uL (1.3-7.7); Neutrophils % (A) 62 %; Platelet Count 338 k/uL (150-450); RBC 4.81 m/uL (3.80-5.40); RDW 14.4 % (11.5-15.5); WBC 9.5 k/uL (3.8-10.6)
--- NOTE | 2018-12-05 19:23 | XR ---
EXAMINATION TYPE: XR foot complete bilateral DATE OF EXAM: 12/05/2018 COMPARISON: NONE HISTORY: Foot pain TECHNIQUE: 3 views each foot FINDINGS: I see no fracture nor dislocation. Metatarsals are intact. There are no erosions. IMPRESSION: Negative bilateral foot exam. No sign of inflammatory arthritis.
--- NOTE | 2018-12-05 19:25 | XR ---
EXAMINATION TYPE: XR knee complete LT DATE OF EXAM: 12/05/2018 COMPARISON: NONE HISTORY: Knee pain TECHNIQUE: 3 views FINDINGS: There is a left knee prosthesis. Joint spaces are fairly normal. I see no fracture. IMPRESSION: Left knee prosthesis. No fracture seen.
[2018-12-05 19:27] LABS: Appearance,Urine Clear (Clear); Bilirubin,Urine 1+ (Negative); Blood,Urine Negative (Negative); Color,Urine Yellow; Glucose,Urine (UA) Negative (Negative); Ketones,Urine 1+ (Negative); Leukocyte Esterase,Urine Moderate (Negative); Mucus,Urine Moderate /hpf; Nitrite,Urine Negative (Negative); PH, Urine 5.5 (5.0-8.0); Protein,Urine Trace (Negative); Specific Gravity,Urine 1.033 (1.001-1.035); Squamous Epithelial Cell,Urine 4 /hpf (0-4); WBC,Urine 2 /hpf (0-5)
[2018-12-05 19:29] LABS: ALT 17 U/L (9-52); AST 31 U/L (14-36); African American GFR (CKD) >90 (>60 ml/min/1.73 sqM); Albumin 4.4 g/dL (3.5-5.0); Alkaline Phosphatase 89 U/L (38-126); Amphetamine Screen,Urine Not Detected (NotDetected); Anion Gap 8 mmol/L; Barbiturate Screen,Urine Not Detected (NotDetected); Benzodiazepines Screen,Urine Not Detected (NotDetected); Blood Urea Nitrogen 14 mg/dL (7-17); Calcium 9.2 mg/dL (8.4-10.2); Carbon Dioxide 27 mmol/L (22-30); Chloride 107 mmol/L (98-107); Cocaine Screen,Urine Not Detected (NotDetected); Creatine Kinase 235 U/L (30-135); Glucose 92 mg/dL (74-99); Methadone Screen, Urine Not Detected (NotDetected); Opiate Screen,Urine Not Detected (NotDetected); Oxycodone Screen, Urine Not Detected (NotDetected); Phencyclidine Screen,Urine Not Detected (NotDetected); Potassium 3.9 mmol/L (3.5-5.1); Sodium 142 mmol/L (137-145); Total Bilirubin 0.5 mg/dL (0.2-1.3); Total Protein 7.7 g/dL (6.3-8.2); Tricyclic Antidepressant,Urine Not Detected (NotDetected); Urn Cannabinoid Scrn Not Detected (NotDetected)
--- NOTE | 2018-12-05 20:22 | ED ---
General Adult HPI - General Chief complaint: Extremity Injury, Lower Stated complaint: FOOT PAIN, BOTH FEET Time Seen by Provider: 12/05/18 18:07 Source: patient Mode of arrival: ambulatory Limitations: no limitations - History of Present Illness Initial comments: 53-year-old female patient presents to the emergency department today for evaluation of bilateral foot pain and left knee pain. Patient states she has been walking through town for the last 5 days nonstop due to becoming homeless. Patient states she hasn't slept in 5 days. Patient states that she came into an inheritance and was trying to "help the poor people" her family became angry about this and kicked out of her home. Patient states that she has not eaten or drank anything in 5 days. She is reporting pain to the bilateral feet, states it is a general aching pain with occasional sharp sensations. Patient denies any known injury to the knee. Denies any numbness or tingling. States other than being tired and the pain in her limbs she is feeling well. She denies any medical history. Patient denies any recent rash, fever, chills, shortness breath, chest pain, abdominal pain, nausea, vomiting, diarrhea, constipation, back pain, numbness, tingling, dizziness, weakness, hematuria, dysuria, urinary urgency, urinary frequency, headache, visual changes, or any other complaints. - Related Data Previous Rx's Medication Instructions Recorded Ibuprofen [Motrin] 600 mg PO Q8HR PRN #30 tab 12/05/18 Allergies Allergy/AdvReac Type Severity Reaction Status Date / Time metal Allergy Swelling Uncoded 12/05/18 18:13 Review of Systems ROS Statement: Those systems with pertinent positive or pertinent negative responses have been documented in the HPI. ROS Other: All systems not noted in ROS Statement are negative. Past Medical History Past Medical History: No Reported History Additional Past Medical History / Comment(s): eczema, anemia, autsitc, asperger History of Any Multi-Drug Resistant Organisms: None Reported Past Surgical History: Joint Replacement, Orthopedic Surgery Additional Past Surgical History / Comment(s): left knee replacement, fibroid tumor removal Past Psychological History: No Psychological Hx Reported Smoking Status: Never smoker Past Alcohol Use History: None Reported Past Drug Use History: None Reported General Exam Limitations: no limitations General appearance: alert, in no apparent distress, other (This is a well- developed, well-nourished adult female patient in no acute distress. Vital signs upon presentation are temperature 98.4F, pulse 80, respirations 18, blood pressure 136/80, pulse ox 100% on room air.) Eye exam: Present: normal appearance, PERRL, EOMI. Absent: scleral icterus, conjunctival injection, periorbital swelling ENT exam: Present: normal exam, normal oropharynx, mucous membranes moist Respiratory exam: Present: normal lung sounds bilaterally. Absent: respiratory distress, wheezes, rales, rhonchi, stridor Cardiovascular Exam: Present: regular rate, normal rhythm, normal heart sounds. Absent: systolic murmur, diastolic murmur, rubs, gallop, clicks GI/Abdominal exam: Present: soft, normal bowel sounds. Absent: distended, te nderness, guarding, rebound, rigid Extremities exam: Present: full ROM, tenderness (Generalized foot tenderness bilateral.), normal capillary refill, pedal edema (Nonpitting), other (Skin to the fetus warm, dry, intact. Normal color for ethnicity. Pedal and posttibial pulses are 2+ and equal bilaterally.). Absent: normal inspection, joint swelling, calf tenderness Neurological exam: Present: alert, CN II-XII intact. Absent: oriented X3 (Orien ganesh 2) Psychiatric exam: Present: other (bizarre reporting of events, possible delusions). Absent: homicidal ideation, suicidal ideation Skin exam: Present: warm, dry, intact, normal color. Absent: rash Course Vital Signs 12/05/18 17:47 Temperature 98.4 F Pulse Rate 80 Respiratory 18 Rate Blood Pressure 136/68 O2 Sat by Pulse 100 Oximetry Medical Decision Making - Medical Decision Making 53-year-old female patient presents to the emergency department today for evaluation of bilateral foot and left knee pain. Patient does admit to being homeless currently's. States that she has been walking through town for the last 5 days. Denies eating denies sleeping. Physical examination does reveal bilateral lower extremity edema, nonpitting. No calf tenderness. X-rays of each foot were obtained and showed no acute abnormalities. X-ray of the left knee was obtained and showed no acute abnormalities. Patient's pain symptoms are most likely caused from the extensive walking she has been doing. Patient was exhibiting some bizarre delusions. She was seen and evaluated by emergency psychiatric services. She has not suicidal or homicidal. It is felt she is safe for discharge. She'll be discharged with this time to follow-up with her primary care physician for recheck in 1-2 days. She is instructed to rest and elevate her feet. She is instructed take Tylenol Motrin for pain control. Return parameters discussed in detail. She verbalizes understanding and agrees with this plan. - Lab Data Result diagrams: 12/05/18 18:58 12/05/18 18:58 Lab Results 12/05/18 12/05/18 12/05/18 Range/Units 18:58 18:58 18:58 WBC 9.5 (3.8-10.6) k/uL RBC 4.81 (3.80-5.40) m/uL Hgb 12.7 (11.4-16.0) gm/dL Hct 39.3 (34.0-46.0) % MCV 81.8 (80.0-100.0) fL MCH 26.4 (25.0-35.0) pg MCHC 32.3 (31.0-37.0) g/dL RDW 14.4 (11.5-15.5) % Plt Count 338 (150-450) k/uL Neutrophils % 62 % Lymphocytes % 28 % Monocytes % 5 % Eosinophils % 3 % Basophils % 0 % Neutrophils # 5.9 (1.3-7.7) k/uL Lymphocytes # 2.6 (1.0-4.8) k/uL Monocytes # 0.5 (0-1.0) k/uL Eosinophils # 0.3 (0-0.7) k/uL Basophils # 0.0 (0-0.2) k/uL Sodium 142 (137-145) mmol/L Potassium 3.9 (3.5-5.1) mmol/L Chloride 107 (98-107) mmol/L Carbon Dioxide 27 (22-30) mmol/L Anion Gap 8 mmol/L BUN 14 (7-17) mg/dL Creatinine 0.85 (0.52-1.04) mg/dL Est GFR (CKD-EPI)AfAm >90 (>60 ml/min/1.73 sqM) Est GFR (CKD-EPI)NonAf 80 (>60 ml/min/1.73 sqM) Glucose 92 (74-99) mg/dL Calcium 9.2 (8.4-10.2) mg/dL Total Bilirubin 0.5 (0.2-1.3) mg/dL AST 31 (14-36) U/L ALT 17 (9-52) U/L Alkaline Phosphatase 89 (38-126) U/L Creatine Kinase 235 H (30-135) U/L Total Protein 7.7 (6.3-8.2) g/dL Albumin 4.4 (3.5-5.0) g/dL Urine Color Yellow Urine Appearance Clear (Clear) Urine pH 5.5 (5.0-8.0) Ur Specific Corn 1.033 (1.001-1.035) Urine Protein Trace H (Negative) Urine Glucose (UA) Negative (Negative) Urine Ketones 1+ H (Negative) Urine Blood Negative (Negative) Urine Nitrite Negative (Negative) Urine Bilirubin 1+ H (Negative) Urine Urobilinogen 3.0 (<2.0) mg/dL Ur Leukocyte Esterase Moderate H (Negative) Urine WBC 2 (0-5) /hpf Ur Squamous Epith Cells 4 (0-4) /hpf Urine Mucus Moderate H (None) /hpf Urine HCG, Qual (Not Detectd) Urine Opiates Screen Not Detected (NotDetected) Ur Oxycodone Screen Not Detected (NotDetected) Urine Methadone Screen Not Detected (NotDetected) Ur Propoxyphene Screen Not Detected (NotDetected) Ur Barbiturates Screen Not Detected (NotDetected) U Tricyclic Antidepress Not Detected (NotDetected) Ur Phencyclidine Scrn Not Detected (NotDetected) Ur Amphetamines Screen Not Detected (NotDetected) U Methamphetamines Scrn Not Detected (NotDetected) U Benzodiazepines Scrn Not Detected (NotDetected) Urine Cocaine Screen Not Detected (NotDetected) U Marijuana (THC) Screen Not Detected (NotDetected) 12/05/18 Range/Units 18:58 WBC (3.8-10.6) k/uL RBC (3.80-5.40) m/uL Hgb (11.4-16.0) gm/dL Hct (34.0-46.0) % MCV (80.0-100.0) fL MCH (25.0-35.0) pg MCHC (31.0-37.0) g/dL RDW (11.5-15.5) % Plt Count (150-450) k/uL Neutrophils % % Lymphocytes % % Monocytes % % Eosinophils % % Basophils % % Neutrophils # (1.3-7.7) k/uL Lymphocytes # (1.0-4.8) k/uL Monocytes # (0-1.0) k/uL Eosinophils # (0-0.7) k/uL Basophils # (0-0.2) k/uL Sodium (137-145) mmol/L Potassium (3.5-5.1) mmol/L Chloride (98-107) mmol/L Carbon Dioxide (22-30) mmol/L Anion Gap mmol/L BUN (7-17) mg/dL Creatinine (0.52-1.04) mg/dL Est GFR (CKD-EPI)AfAm (>60 ml/min/1.73 sqM) Est GFR (CKD-EPI)NonAf (>60 ml/min/1.73 sqM) Glucose (74-99) mg/dL Calcium (8.4-10.2) mg/dL Total Bilirubin (0.2-1.3) mg/dL AST (14-36) U/L ALT (9-52) U/L Alkaline Phosphatase (38-126) U/L Creatine Kinase (30-135) U/L Total Protein (6.3-8.2) g/dL Albumin (3.5-5.0) g/dL Urine Color Urine Appearance (Clear) Urine pH (5.0-8.0) Ur Specific Corn (1.001-1.035) Urine Protein (Negative) Urine Glucose (UA) (Negative) Urine Ketones (Negative) Urine Blood (Negative) Urine Nitrite (Negative) Urine Bilirubin (Negative) Urine Urobilinogen (<2.0) mg/dL Ur Leukocyte Esterase (Negative) Urine WBC (0-5) /hpf Ur Squamous Epith Cells (0-4) /hpf Urine Mucus (None) /hpf Urine HCG, Qual Not Detected (Not Detectd) Urine Opiates Screen (NotDetected) Ur Oxycodone Screen (NotDetected) Urine Methadone Screen (NotDetected) Ur Propoxyphene Screen (NotDetected) Ur Barbiturates Screen (NotDetected) U Tricyclic Antidepress (NotDetected) Ur Phencyclidine Scrn (NotDetected) Ur Amphetamines Screen (NotDetected) U Methamphetamines Scrn (NotDetected) U Benzodiazepines Scrn (NotDetected) Urine Cocaine Screen (NotDetected) U Marijuana (THC) Screen (NotDetected) - Radiology Data Radiology results: report reviewed, image reviewed 3 views of each foot are obtained. Report reviewed in its entirety. Impression by Dr. Bennett shows negative bilateral foot exam. No sign of inflammatory arthritis. Views of the left knee are obtained. Report reviewed in its entirety. Impression by Dr. Bennett shows left knee prosthesis. No fracture seen. Disposition Clinical Impression: Foot pain, Homelessness Disposition: HOME SELF-CARE Condition: Good Instructions (If sedation given, give patient instructions): Metatarsalgia (DC) Additional Instructions: Take tylenol and motrin for pain control. Rest and keep feet elevated. Follow up with your primary care physician for recheck in 1-2 days. Return to the emergency department for any new, worsening, or concerning symptoms. Prescriptions: Ibuprofen [Motrin] 600 mg PO Q8HR PRN #30 tab PRN Reason: Pain Is patient prescribed a controlled substance at d/c from ED?: No Referrals: Neftaly Rose MD [Primary Care Provider] - 1-2 days Time of Disposition: 20:41
[2018-12-05] MEDS ORDERED: IBUPROFEN 600 MG STARTER PACK 4 TAB BTL PO STA (20:40)
== END 2018-12-05 21:58 | disposition home or self-care (01) ==
LOC: EC 17:36
DX: M79.672 Pain in left foot (principal); M79.671 Pain in right foot; F22 Delusional disorders; Z59.0 Homelessness; Z96.652 Presence of left artificial knee joint; Z91.09 Other allergy status, other than to drugs and biological substances
CPT/HCPCS: 36415; 80053; 82550; 85025; 81001; 81025; 80306; 73630; 73562; 99284; 96374; 96361 ×2; J1885

== ENCOUNTER 2018-12-14 11:13 | Inpatient (IN) | payer MEDICAID, OTHER ==
--- NOTE | 2018-12-14 11:49 | ED ---
General Adult HPI - General Chief complaint: Psychiatric Symptoms Stated complaint: Feet pain Time Seen by Provider: 12/14/18 11:24 Source: patient, RN notes reviewed Mode of arrival: ambulatory Limitations: no limitations - History of Present Illness Initial comments: Patient is a pleasant 53-year-old female presenting to emergency department for mental health evaluation. Patient reportedly was brought by [facility]. Patient reportedly has been delusional. Patient states she does have problems with her family members taking money from her and not letting her have her money. Patient admits to not sleeping well and being homeless. Patient states she has not been eating or drinking much lately. Patient states she has been walking around frequently. Patient does complain of discomfort of 3 of her toes. Patient denies suicidal or homicidal thoughts. Patient denies hallucinations or drug use. - Related Data Home Medications Medication Instructions Recorded Confirmed Ibuprofen [Motrin Ib] 400 - 600 mg PO Q6H PRN 12/14/18 12/14/18 Allergies Allergy/AdvReac Type Severity Reaction Status Date / Time metal Allergy Swelling Uncoded 12/14/18 11:48 Review of Systems ROS Statement: Those systems with pertinent positive or pertinent negative responses have been documented in the HPI. ROS Other: All systems not noted in ROS Statement are negative. Constitutional: Denies: fever Eyes: Denies: eye pain ENT: Denies: ear pain Respiratory: Denies: cough Cardiovascular: Denies: chest pain Endocrine: Denies: fatigue Gastrointestinal: Denies: abdominal pain Genitourinary: Denies: dysuria Musculoskeletal: Denies: back pain Skin: Denies: rash Neurological: Denies: headache Psychiatric: Denies: homicidal thoughts, suicidal thoughts Past Medical History Past Medical History: No Reported History Additional Past Medical History / Comment(s): eczema, anemia, autsitc, asperger History of Any Multi-Drug Resistant Organisms: None Reported Past Surgical History: Joint Replacement, Orthopedic Surgery Additional Past Surgical History / Comment(s): left knee replacement, fibroid tumor removal Past Psychological History: No Psychological Hx Reported Smoking Status: Never smoker Past Alcohol Use History: None Reported Past Drug Use History: None Reported General Exam Limitations: no limitations General appearance: alert, in no apparent distress Head exam: Present: atraumatic Eye exam: Present: normal appearance, PERRL ENT exam: Present: normal oropharynx Neck exam: Present: normal inspection Respiratory exam: Present: normal lung sounds bilaterally Cardiovascular Exam: Present: regular rate, normal rhythm GI/Abdominal exam: Present: soft. Absent: tenderness Extremities exam: Present: pedal edema (Trace bilateral). Absent: calf tenderness Neurological exam: Present: alert, oriented X3 Psychiatric exam: Present: normal affect, normal mood Skin exam: Present: other (Patient does have callus formation dorsal aspect of the bilateral second toe and left fifth toe.) Course Vital Signs 12/14/18 11:16 Temperature 97.9 F Pulse Rate 77 Respiratory 18 Rate Blood Pressure 152/88 O2 Sat by Pulse 99 Oximetry - Reevaluation(s) Reevaluation #1: 12/14/18 14:17 Patient was seen by mental health with plans of admission. Positive clinical certificate completed. Medical Decision Making - Lab Data Lab Results 12/14/18 Range/Units 11:55 Urine Opiates Screen Not Detected (NotDetected) Ur Oxycodone Screen Not Detected (NotDetected) Urine Methadone Screen Not Detected (NotDetected) Ur Propoxyphene Screen Not Detected (NotDetected) Ur Barbiturates Screen Not Detected (NotDetected) U Tricyclic Antidepress Not Detected (NotDetected) Ur Phencyclidine Scrn Not Detected (NotDetected) Ur Amphetamines Screen Not Detected (NotDetected) U Methamphetamines Scrn Not Detected (NotDetected) U Benzodiazepines Scrn Not Detected (NotDetected) Urine Cocaine Screen Not Detected (NotDetected) U Marijuana (THC) Screen Not Detected (NotDetected) Disposition Clinical Impression: Acute psychosis Disposition: TRANSFER TO PSYCH HOSP/UNIT Is patient prescribed a controlled substance at d/c from ED?: No Referrals: Neftaly Rose MD [Primary Care Provider] - 1-2 days Decision Time: 14:17
[2018-12-14 12:16] LABS: Amphetamine Screen,Urine Not Detected (NotDetected); Barbiturate Screen,Urine Not Detected (NotDetected); Benzodiazepines Screen,Urine Not Detected (NotDetected); Cocaine Screen,Urine Not Detected (NotDetected); Methadone Screen, Urine Not Detected (NotDetected); Opiate Screen,Urine Not Detected (NotDetected); Phencyclidine Screen,Urine Not Detected (NotDetected); Tricyclic Antidepressant,Urine Not Detected (NotDetected); Urn Cannabinoid Scrn Not Detected (NotDetected)
[2018-12-14 12:17] LABS: Oxycodone Screen, Urine Not Detected (NotDetected)
[2018-12-14] MEDS ORDERED: ZIPRASIDONE 20 MG VIAL IM PRN (18:52)
[2018-12-14] MEDS ORDERED: LORazepam 2 MG/ML INJ IM PRN (18:54)
--- NOTE | 2018-12-14 23:31 | P.HPIM ---
History of Present Illness H&P Date: 12/14/18 The patient is a 53-year-old homeless female with no reported PMH presented to the ED for psychiatric issues as per CM. The patient was reported to be delusional. The patient reports that she has been fighting via court case with her family over father's inheritance and has not been able to sleep due to it. She reports being homeless after being kicked out of her apartment by her sister. She reports chronic intermittent swelling of her feet and notes chronic pain from it. She otherwise denied any active complaints including fever, chills, chest pain, SOB, nausea, vomiting, or abdominal pain. Review of Systems Pertinent positives and negatives as discussed in HPI, a complete review of systems was performed and all other systems are negative. Past Medical History Past Medical History: No Reported History Additional Past Medical History / Comment(s): eczema, anemia, autsitc, asperger History of Any Multi-Drug Resistant Organisms: None Reported Past Surgical History: Joint Replacement, Orthopedic Surgery Additional Past Surgical History / Comment(s): left knee replacement, fibroid tumor removal Past Psychological History: No Psychological Hx Reported Additional Psychological History / Comment(s): Autsitc. Aspergers Smoking Status: Never smoker Past Alcohol Use History: None Reported Past Drug Use History: None Reported Medications and Allergies Home Medications Medication Instructions Recorded Confirmed Type Ibuprofen [Motrin Ib] 400 - 600 mg PO Q6H PRN 12/14/18 12/14/18 History Allergies Allergy/AdvReac Type Severity Reaction Status Date / Time metal Allergy Swelling Uncoded 12/14/18 11:48 Physical Exam Vitals: Vital Signs Temp Pulse Pulse Resp BP BP Pulse Ox 12/14/18 18:12 97.1 F L 12/14/18 17:56 97.1 F L 74 16 148/81 99 12/14/18 17:17 97.6 F 77 18 150/84 100 12/14/18 14:39 97.5 F L 78 17 142/82 99 12/14/18 11:16 97.9 F 77 18 152/88 99 Intake and Output 12/14/18 12/14/18 12/15/18 14:59 22:59 06:59 Other: Weight 104.916 kg 104.3 kg General: non toxic, no distress, appears at stated age, normal weight Derm: no unusual rashes/lesions no unusual ecchymoses, warm, dry Head: atraumatic, normocephalic, symmetric Eyes: EOMI, no lid lag, anicteric sclera, pupils equal round reactive to light ENT: Nose and ears atraumatic, no thrush, no pharyngeal erythema Neck: No thyromegaly, no cervical lymphadenopathy, trachea midline, supple Mouth: no lip lesion, mucus membranes moist Cardiovascular: S1S2 reg, no murmur, positive posterior tibial pulse bilateral, trace bilateral ankle edema, capillary refill less than 2 seconds Lungs: CTA bilateral, no rhonchi, no rales , no accessory muscle use Abdominal: soft, nontender to palpation, no guarding, no appreciable organomegaly, normal bowel sounds Ext: no gross muscle atrophy, muscle strength 5 out of 5 in all 4 extremities grossly, no contractures, Neuro: CN II-XI grossly intact, light touch intact all 4 extremities, finger to nose within normal limits, Psych: Alert, oriented, flat, withdrawn affect Thrombosis Risk Factor Assmnt - Choose All That Apply Any of the Below Risk Factors Present?: Yes Each Factor Represents 1 point: Age 41-60 years Other Risk Factors: No Other congenital or acquired thrombophilia - If yes, enter type in comment: No Thrombosis Risk Factor Assessment Total Risk Factor Score: 1 Thrombosis Risk Factor Assessment Level: Low Risk Assessment and Plan Plan: Chronic lower extremity swelling and pain -Possibly peripheral neuropathy from diabetes -Check A1c Elevated blood pressure -Monitor for now and if continues to be high will start antihypertensive Psychosis -As per psychiatry Thank you for allowing us to participate in the care of this patient. We will follow peripherally. Do not hesitate to contact us with questions. Someone can be reached from the [facility] hospitalist group at all hours of the day at [phone].
[2018-12-15 08:47] LABS: Basophils % (A) 0 %; Eosinophils # (A) 0.2 k/uL (0-0.7); Eosinophils % (A) 4 %; HCT 41.3 % (34.0-46.0); HGB 13.3 gm/dL (11.4-16.0); Lymphocytes # (A) 1.6 k/uL (1.0-4.8); Lymphocytes % (A) 35 %; MCH 26.6 pg (25.0-35.0); MCHC 32.3 g/dL (31.0-37.0); MCV 82.3 fL (80.0-100.0); Mean Platelet Volume 6.4; Monocytes # (A) 0.2 k/uL (0-1.0); Monocytes % (A) 5 %; Neutrophils # (A) 2.4 k/uL (1.3-7.7); Neutrophils % (A) 54 %; Platelet Count 328 k/uL (150-450); RBC 5.02 m/uL (3.80-5.40); RDW 14.4 % (11.5-15.5); WBC 4.4 k/uL (3.8-10.6)
[2018-12-15 09:09] LABS: Albumin 3.8 g/dL (3.5-5.0); Calcium 9.3 mg/dL (8.4-10.2); Potassium 4.6 mmol/L (3.5-5.1); Total Bilirubin 0.5 mg/dL (0.2-1.3)
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
[2018-12-15 18:07] LABS: Hemoglobin A1C 6.1 % (4.0-6.0)
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
[2018-12-16] MEDS ORDERED: ARIPiprazole 5 MG TAB PO SCH (21:00)
[2018-12-16] MEDS: ARIPiprazole 2 MG TAB PO SCH (21:13)
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
[2018-12-17] MEDS: ARIPiprazole 2 MG TAB PO SCH (21:44)
[2018-12-18] MEDS: ACETAMINOPHEN TAB 325 MG TAB PO PRN ×3 (12:19→21:05)
--- NOTE | 2018-12-18 12:53 | P.PN ---
Progress Note - Text Progress Note Date: 12/18/18 Interval History: Patient is a 53-year-old female who was seen today and she reports that she slept okay but is sore all over and took some Tylenol. She states she didn't have any nightmares last night and her appetite is good. She complains that her feet continue to hurt her but that they are swollen as they were on admission. Patient denies any suicidal thoughts and denies any auditory hallucinations. Patient did not spontaneously begin discussing her family, they're stealing her money but continues to have those thoughts when specifically asked about them. Mental Status:Appearance/Attitude: Patient is neatly dressed, makes eye contact and was cooperative Behavior: Patient did not exhibit any psychomotor agitation or retardation Speech/Language: Patient's speech was spontaneous of normal volume and rhythm at times with [place] accent at other times not and she was coherent Thought Process: Patient is goal-directed there is no evidence of loose association or flight of ideas Thought Content: Patient denied any auditory or visual hallucinations patient did not spontaneously discuss concerns that she had about her sister's stealing money from her but if asked patient did continue to have the thoughts that the family stole money from her that she's lost her livelihood. Patient states that she feels sore this morning when she awakened but states she thinks that that's from being on the streets for the last 2 weeks. Patient states that she is eating better and did sleep through the night but tossed and turned. She states that she had no nightmares last night Suicidal/Homicidal Ideation: Patient denies any current suicidal or homicidal ideation Sensorium/Cognition: Patient is alert and oriented to person, place and time and her recent and remote memory are grossly intact Mood/Affect: Patient's mood is pleasant and her affect is appropriate to her mood Insight/Judgment: Patient's insight and judgment are fair Assessment: Patient reports no side effects of shaking today from the medication and states that she had no nightmares last night. She states that she was physically sore this morning when she awakened and that she had slept through the night and her appetite is improved. Patient did not spontaneously today discussed her concerns her family stole her money, that she had been making millions but when asked patient will voice these same concerns. Patient continues to be accepting of medication and was agreeable with an increase in her dose. Plan: Will increase patient's Abilify to 5 mg at bedtime, patient continues to require hospitalization to target her psychotic symptoms.
[2018-12-18] MEDS: ARIPiprazole 5 MG TAB PO SCH (21:04)
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
[2018-12-19] MEDS: ARIPiprazole 5 MG TAB PO SCH (20:59)
[2018-12-20] MEDS: ACETAMINOPHEN TAB 325 MG TAB PO PRN ×2 (09:00→21:01)
--- NOTE | 2018-12-20 12:04 | P.PN ---
Progress Note - Text Progress Note Date: 12/20/18 Interval history: Patient is seen in cross coverage taken. She is found in her room lying in bed. She states she is dealing with a lot of soreness and some dizziness today. She did get up and have something to eat for breakfast. She is encouraged to continue eating meals and keep up her fluids. She states that her mood overall is doing pretty good. She states that she usually has an adjustment. When it changes made with her medications. Mental status exam: She is on found in her room lying in bed. She is cooperative with the interview. She does not show any agitation. She describes her mood is pretty good. She denies any thoughts of harm to self or others. She does not verbalize any hallucinations. She does not show any agitation. Plan: Patient will be maintained on current psychotropic medication regimen. We will monitor for any psychotropic medication side effects and continue to monitor her ongoing response to treatment.
[2018-12-20 14:28] LABS: Appearance,Urine Cloudy (Clear); Bacteria,Urine Occasional /hpf; Bilirubin,Urine Negative (Negative); Blood,Urine Negative (Negative); Color,Urine Light Yellow; Glucose,Urine (UA) Negative (Negative); Ketones,Urine Negative (Negative); Leukocyte Esterase,Urine Small (Negative); Mucus,Urine Rare /hpf; Nitrite,Urine Negative (Negative); Protein,Urine Negative (Negative); RBC,Urine 1 /hpf (0-5); Specific Gravity,Urine 1.016 (1.001-1.035); Squamous Epithelial Cell,Urine 9 /hpf (0-4); Urobilinogen,Urine <2.0 mg/dL (<2.0); WBC,Urine 6 /hpf (0-5)
[2018-12-20] MEDS: ARIPiprazole 5 MG TAB PO SCH (21:01)
[2018-12-21] MEDS: MAGNESIUM HYDROXIDE 2,400 MG/10 ML CUP PO PRN (08:47)
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
[2018-12-21] MEDS: ACETAMINOPHEN TAB 325 MG TAB PO PRN (20:40)
[2018-12-21] MEDS: ARIPiprazole 5 MG TAB PO SCH (20:40)
[2018-12-22] MEDS: MULTIVITAMINS, PEDIATRIC 1 EACH CHEWABLE PO SCH (10:26)
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
[2018-12-22] MEDS: ARIPiprazole 10 MG TAB PO SCH (21:26)
[2018-12-23] MEDS: MULTIVITAMINS, PEDIATRIC 1 EACH CHEWABLE PO SCH (08:10)
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
[2018-12-23] MEDS: MAG HYDROX/AL HYDROX/SIMETH 30 ML CUP PO PRN (18:55)
[2018-12-23] MEDS: ARIPiprazole 10 MG TAB PO SCH (20:05)
[2018-12-23] MEDS: ACETAMINOPHEN TAB 325 MG TAB PO PRN (20:05)
[2018-12-24] MEDS: MULTIVITAMINS, PEDIATRIC 1 EACH CHEWABLE PO SCH (08:00)
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
[2018-12-24] MEDS: MAG HYDROX/AL HYDROX/SIMETH 30 ML CUP PO PRN (17:40)
[2018-12-24] MEDS: ARIPiprazole 10 MG TAB PO SCH (20:04)
[2018-12-25] MEDS: MULTIVITAMINS, PEDIATRIC 1 EACH CHEWABLE PO SCH (09:20)
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
[2018-12-25] MEDS: ARIPiprazole 15 MG TAB PO SCH (20:50)
[2018-12-25] MEDS: ACETAMINOPHEN TAB 325 MG TAB PO PRN (20:50)
[2018-12-26] MEDS: MULTIVITAMINS, PEDIATRIC 1 EACH CHEWABLE PO SCH (08:38)
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
[2018-12-26] MEDS: ACETAMINOPHEN TAB 325 MG TAB PO PRN ×2 (11:17→20:39)
[2018-12-26] MEDS: ARIPiprazole 15 MG TAB PO SCH (20:39)
[2018-12-27] MEDS: MAG HYDROX/AL HYDROX/SIMETH 30 ML CUP PO PRN (07:37)
[2018-12-27] MEDS: MULTIVITAMINS, PEDIATRIC 1 EACH CHEWABLE PO SCH (08:09)
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
[2018-12-27] MEDS: ARIPiprazole 15 MG TAB PO SCH (20:39)
[2018-12-27] MEDS: ACETAMINOPHEN TAB 325 MG TAB PO PRN (20:40)
[2018-12-28] MEDS: MULTIVITAMINS, PEDIATRIC 1 EACH CHEWABLE PO SCH (09:20)
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
[2018-12-28] MEDS: ARIPiprazole 15 MG TAB PO SCH (20:39)
[2018-12-28] MEDS: MELATONIN 3 MG TABLET PO SCH (20:39)
[2018-12-28] MEDS: ACETAMINOPHEN TAB 325 MG TAB PO PRN (20:39)
[2018-12-29] MEDS: MULTIVITAMINS, PEDIATRIC 1 EACH CHEWABLE PO SCH (09:02)
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
[2018-12-29] MEDS: MELATONIN 3 MG TABLET PO SCH (20:03)
[2018-12-29] MEDS: ARIPiprazole 15 MG TAB PO SCH (20:03)
[2018-12-30] MEDS: MULTIVITAMINS, PEDIATRIC 1 EACH CHEWABLE PO SCH (08:22)
[2018-12-30] MEDS: ACETAMINOPHEN TAB 325 MG TAB PO PRN ×2 (08:26→20:19)
--- NOTE | 2018-12-30 12:08 | P.PN ---
Progress Note - Text Progress Note Date: 12/30/18 Interval History: Patient is a 53-year-old female who was seen today and we discussed the fact that her sister Shahana does live in [place] and was contacted yesterday after she signed a release of information and she confirmed that she also has a sister Daniella in [place] when questioned about where her mother is she states in [place] and then states that those 2 sisters and her do not have the same father. When I initially asked her were her father was she said in [place] and then states that he came here to help her get her inheritance. Patient then stated that her daughter is in [place] with her ex- but that's not really her daughter that her had an affair with her best friend and that's her child but the patient adopted the child. Patient again denied that she has ever been treated for any psychiatric problems in the past or been admitted in the past. Patient when she discussed the guardianship hearing that is coming up on December 31 did not refer to it as a guardianship but thinks that it has to do with getting a new executor for her inheritance Mental Status: Appearance/Attitude: Patient is casually dressed, makes eye contact and is cooperative Behavior: Patient does not display any psychomotor agitation or retardation Speech/Language: Patient's speech is spontaneous and normal volume and rhythm and she is coherent Thought Process: Patient is goal-directed there is no evidence of loose association or flight of ideas Thought Content: Patient denies any auditory or visual hallucinations, patient continues to discuss her inheritance, that her father is here to help her get her inheritance back from [employer], 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 Patient states that she is sleeping but reports that she feels still tired during the day and can get used to the medication and also complains that she has GI problems that require her to get up at 3 AM and even fiber bar as well as eating one at 8 AM to prevent her stomach from burning. Suicidal/Homicidal Ideation: Patient denies any current suicidal or homicidal ideation Sensorium/Cognition: She is alert and oriented to person, place, and time and her recent and remote memory are grossly intact Mood/Affect: Patient's mood is restricted her affect is blunted Insight/Judgment: Patient's insight and judgment are limited Assessment: Patient will agree that her 2 sisters are Daniella and Shahana but then states that they have different fathers then discusses her father living in [place] in coming here to help her get her inheritance that she should have from the book that she wrote that was used by [employer] in their scenarios, patient continues to have delusional ideation and incorporate new information into these delusions. Patient's mother was diagnosed with schizophrenia and apparently the patient has never received treatment for any mental health issues but has expressed delusional ideation in the past per her sister in [place]. Patient complains of feeling sleepy during the day on the medication. Plan: Patient will continue on Abilify 15 mg I discussed with her that the dose probably needs to be increased she is wanting to have it increased. Patient is to have a guardianship hearing tomorrow. Patient is requiring inpatient hospitalization to further stabilize her delusional ideation which may take some time as the patient has never been treated in the past.
[2018-12-30] MEDS: ARIPiprazole 15 MG TAB PO SCH (20:19)
[2018-12-30] MEDS: MELATONIN 3 MG TABLET PO SCH (20:19)
[2018-12-31] MEDS: MULTIVITAMINS, PEDIATRIC 1 EACH CHEWABLE PO SCH (09:43)
[2018-12-31] MEDS: ACETAMINOPHEN TAB 325 MG TAB PO PRN ×3 (09:43→20:39)
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
[2018-12-31] MEDS: MELATONIN 3 MG TABLET PO SCH (20:39)
[2018-12-31] MEDS: ARIPiprazole 15 MG TAB PO SCH (20:39)
[2018-12-31] MEDS: LORazepam 1 MG TAB PO PRN (20:41)
[2019-01-01] MEDS: MULTIVITAMINS, PEDIATRIC 1 EACH CHEWABLE PO SCH (09:25)
[2019-01-01] MEDS: ACETAMINOPHEN TAB 325 MG TAB PO PRN ×2 (09:25→20:01)
--- NOTE | 2019-01-01 10:23 | P.PN ---
Progress Note - Text Progress Note Date: 01/01/19 Interval History: Patient is a 53-year-old female who was seen today and she reports that she slept well, she gets up at 3 AM to eat because her stomach de la rosa secondary to which she says is her enteritis and then she returns to sleep. 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 Patient states that she is attending groups and activities. Patient discussed whether she would qualify for Social Security disability and then decided that she wouldn't based on her inheritance. Mental Status: Appearance/Attitude: Patient is neatly groomed, makes eye contact and was cooperative Behavior: Patient does not exhibit any psychomotor agitation or retardation Speech/Language: Patient's speech is spontaneous of normal volume and rhythm and she is coherent Thought Process: Patient is goal-directed there is no loose association or flight of ideas however the patient's discussions always return to concerns regarding her inheritance, the state and most recently about the novel she is writing Thought Content: Patient denies any auditory or visual hallucinations but continues to express that she needs to have an executor appointed to obtain her inheritance, now stating that 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 Patient is not reporting any side effects from the medication. Patient is eating well and states that she is not feeling tired during the day Suicidal/Homicidal Ideation: Patient denies any current suicidal or homicidal ideation Sensorium/Cognition: Patient is alert and oriented to person, place and time and her recent and remote memory are grossly intact Mood/Affect: Patient's mood remains bland and her affect blunted, the patient does not endorse any mood symptoms Insight/Judgment: Patient's insight and judgment are limited Assessment: Patient continues to express that she needs to have an executor appointed to obtain control of her inheritance, today discussed that she needs to write her second novel, we discussed with the symptoms of schizophrenia were at her request, we also reviewed what a guardian does. Patient does not endorse any mood symptoms of depression or asa currently or in the past. Patient is eating well, she states that she gets up in the middle of the night to eat because her stomach de la rosa due to her enteritis. Patient is attending groups and activities. Plan: Patient continues on Abilify 15 mg at bedtime which was started on December 25, she was started on Abilify at a therapeutic dose on December 22, she is also on melatonin 3 mg at bedtime. Patient is reluctant to increase her Abilify higher than the 15 mg. Patient has not been on Abilify at a therapeutic dose for 2 weeks at this point and we will reevaluate whether Abilify is beneficial after the patient has been on a therapeutic dose for at least 2 weeks before considering another antipsychotic. Patient has never endorsed any mood symptoms of depression or asa currently or in the past. Patient was made aware that Dr. Johnson will be taking over her case beginning Friday. Patient continues to require hospitalization to stabilize her delusional ideation.
[2019-01-01] MEDS: MAG HYDROX/AL HYDROX/SIMETH 30 ML CUP PO PRN (16:34)
[2019-01-01] MEDS: ARIPiprazole 15 MG TAB PO SCH (20:01)
[2019-01-01] MEDS: MELATONIN 3 MG TABLET PO SCH (20:01)
[2019-01-01] MEDS: LORazepam 1 MG TAB PO PRN (20:46)
[2019-01-02] MEDS: MULTIVITAMINS, PEDIATRIC 1 EACH CHEWABLE PO SCH (08:27)
[2019-01-02] MEDS: ACETAMINOPHEN TAB 325 MG TAB PO PRN ×3 (08:28→20:09)
--- NOTE | 2019-01-02 10:48 | P.PN ---
Progress Note - Text Interval history: The patient is found in group she follows me to an interview room. She indicates that she is taking her medication. She reports having some trouble sleeping last night staff recorded she slept 7 hours. She reports she used and Ativan which helped but left her feeling tired in the morning. We discussed titrating the melatonin dose further and she was agreeable. She has been admitted for symptoms of psychosis and has not been agreeable to increasing the dose of the Abilify. 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 She states that she is very wealthy. 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 He states that she is working on a master's in that field. 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 Mental status exam: The patient is a tall overweight -Finnish female appearing her stated age. She is dressed in her own clothing hygiene grooming adequate. She is pleasant and cooperative. She is soft-spoken. She has spontaneous speech she is verbose. She demonstrated circumstantial thinking and tangential thinking at times. She seems to be relaying grandiose thoughts. Insight and judgment appear impaired. He demonstrates no verbal or physical aggressiveness she demonstrates no involuntary repetitive movements. She reports no suicidal or homicidal ideation. She is endorsing auditory or visual. Impressions/plan: Symptoms of psychosis, the patient remains on the Abilify 15 mg daily. It's documented that she has been resistant to having the dose increased. We are allowing the Abilify time to demonstrate efficacy. He is encouraged to continue participating in groups. We will monitor her for safety. Vital signs reviewed.
[2019-01-02] MEDS: MAG HYDROX/AL HYDROX/SIMETH 30 ML CUP PO PRN (19:37)
[2019-01-02] MEDS: ARIPiprazole 15 MG TAB PO SCH (20:08)
[2019-01-02] MEDS: MELATONIN 5 MG TABLET PO SCH (20:08)
[2019-01-03] MEDS: LORazepam 1 MG TAB PO PRN (01:20)
[2019-01-03] MEDS: MULTIVITAMINS, PEDIATRIC 1 EACH CHEWABLE PO SCH (09:17)
[2019-01-03] MEDS: ACETAMINOPHEN TAB 325 MG TAB PO PRN (09:18)
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
[2019-01-03] MEDS: MELATONIN 5 MG TABLET PO SCH (20:11)
[2019-01-04] MEDS: MULTIVITAMINS, PEDIATRIC 1 EACH CHEWABLE PO SCH (08:11)
[2019-01-04] MEDS: ACETAMINOPHEN TAB 325 MG TAB PO PRN ×2 (08:12→21:11)
--- NOTE | 2019-01-04 12:05 | P.PN ---
Progress Note - Text Progress Note Date: 01/04/19 Interval History: Patient was seen in the hallways and was directable and agreeable to speak with administrative underwriter in office. Patient continues to be delusional and spoke of her being owed lots of money from her sister and being kicked out onto the street and moved to [place] to live. She states that she is [place] and wanted to go to [place] so she can speak [place] and spoke of an invasion of people in [place] at this time. Patient also spoke of not wanting to share a room with a roommate as she is afraid that her roommate will take some of her things and in fact her room. Patient has been going to groups and is cooperative. Patient is tangential and loose at times and endorses paranoia. At this time patient denies any suicidal or homical ideations, intent or plan. Patient admitted to some auditory hallucinations however does not describe them. She denies visual hallucinations and denies any paranoia or delusions. Patient denies any side effects from the medications and has been compliant with meds. Spoke in great length with patient about need to switch her antipsychotic due to lack of efficacy and patient was agreeable to start Haldol at this time. Informed patient of risks benefits and alternatives patient verbally understood and agreed. Mental Status Exam: General Appearance: [Patient appears to be stated age is alert, pleasant, and cooperative.] Patient is tall, wearing street clothing and has marginal hygiene and grooming. Behavior: [Patient is calmly seated without any agitated behavior.] Speech: Patient's speech is fluent and nonpressured. Mood/Affect: Patient reports their mood is improving, affect is congruent and constricted. Suicidality/Homicidality: Patient denies having any suicidal or homicidal ideation intent or plan. Perceptions: Patient admits to auditory hallucinations however does not give any more information. Though content/process: Patient does have multiple delusions and endorses paranoia about her money and people stealing things from her, is loose and tangential. Patient is not responding to internal stimuli Memory and concentration: AOX3, grossly intact for the purposes of this session Judgment and insight: Poor Assessment schizophrenia Plan: -Patient continues to meet criteria for inpatient psychiatric admission for symptom stabilization and safety. patient is currently at referral and the court process. -Medications: will commence a cross titration of antipsychotics, will begin by decreasing Abilify to 10 mg daily for tomorrow and start haloperidol 3 mg twice a day with first dose tonight for psychosis. We'll discuss option for long- acting injection of Haldol in the near future with patient. -When necessary Haldol and Ativan for agitation/aggression. -Will draw BMP, B12 and perform EKG tomorrow a.m. -SW on board for discharge planning. Currently working with social worker psychiatric and patient to discuss a appropriate discharge plan and follow-up.[]
[2019-01-04] MEDS: MELATONIN 5 MG TABLET PO SCH (21:10)
[2019-01-04] MEDS: HALOPERIDOL 1 MG TAB PO SCH (21:10)
[2019-01-04] MEDS: MAG HYDROX/AL HYDROX/SIMETH 30 ML CUP PO PRN (21:31)
[2019-01-05] MEDS: HALOPERIDOL 1 MG TAB PO SCH ×2 (08:31→20:39)
[2019-01-05] MEDS: MULTIVITAMINS, PEDIATRIC 1 EACH CHEWABLE PO SCH (08:31)
[2019-01-05] MEDS: ACETAMINOPHEN TAB 325 MG TAB PO PRN (08:32)
[2019-01-05 08:42] LABS: Calcium 9.4 mg/dL (8.4-10.2); Potassium 4.3 mmol/L (3.5-5.1)
[2019-01-05] MEDS ORDERED: ARIPiprazole 10 MG TAB PO SCH (09:00)
--- NOTE | 2019-01-05 09:57 | P.PN ---
Progress Note - Text Progress Note Date: 01/05/19 Interval History: Patient was seen in the hallways and was agreeable to speak with technical publications writer in the office. Patient answered questions as appropriately as possible and appeared to be calm this morning. Patient states that she has been getting her feet soaked and putting antibacterial on it and appear to be an foot pain. Patient states that she slept better last night and claims that she was not "hallucinating and hearing voices at night" due to the medications. Patient claims that she feels calmer this morning and claims that her mood is improving. Patient claims that she feels optimistic about her medications. Patient claims that her stomach does get upset when she doesn't take food and then takes the medications, discussed with patient the need to take meds with a full stomach and with water. Patient claims that the Abilify was making her feel more anxious and is happy to be titrating off the medication. At this time patient denies any suicidal or homical ideations, intent or plan. Patient admits to improving auditory, visual hallucinations and denies any paranoia or delusions. Patient has been compliant with meds. Mental Status Exam: General Appearance: Patient appears to be stated age is alert, pleasant, and cooperative. Patient appears to be in mild pain from foot, hygiene and grooming fair Behavior: Patient is calmly seated without any agitated behavior. Speech: Patient's speech is fluent and nonpressured. Mood/Affect: Patient reports their mood is improving, affect is congruent and constricted. Suicidality/Homicidality: Patient denies having any suicidal or homicidal ideation intent or plan. Perceptions: Auditory visual hallucinations improving mildly. Though content/process: thought process is linear and goal-directed Memory and concentration: AOX3, grossly intact for the purposes of this session Judgment and insight: Improving Assessment Schizophrenia Plan: -Patient continues to meet criteria for inpatient psychiatric admission for symptom stabilization and safety. Patient is currently deferral in the court process. -Medications: Will continue with cross titration of antipsychotics. We'll continue decreasing Abilify to 7.5 mg daily for tomorrow and patient to remain on haloperidol 3 mg twice a day with plan to increase for psychosis. -Will discuss with patient the recommendation for long-acting injection of Haldol near future. -When necessary Ativan for agitation/aggression. -Reviewed basic metabolic panel, awaiting B12 and EKG results. -SW on board for discharge planning.
[2019-01-05] MEDS: MAG HYDROX/AL HYDROX/SIMETH 30 ML CUP PO PRN (10:43)
--- NOTE | 2019-01-05 18:49 | P.PN ---
Subjective Progress Note Date: 01/05/19 Nurse called that patient is complaining of bilateral toe pain and is using heat stroke without any help. Patient stated that she is having this problem for about a month and they've nothing is been taking care of. Patient stated that when she wears the shoes her toes get sore especially the big toe bilaterally. Patient stated that she had flatfoot and if she does not wear shoes her knee hurts. Patient denies any fever or chills denies drainage or discharge from the toenails and denied blisters around the toes. Objective - Vital Signs Vital signs: Vital Signs Temp 97.1 F L 01/05/19 06:29 Pulse 72 01/05/19 06:29 Resp 18 01/05/19 06:29 BP 124/62 01/05/19 06:29 Pulse Ox 99 12/14/18 17:56 - Constitutional General appearance: Present: cooperative, no acute distress - EENT ENT: Present: hearing grossly normal, NA/AT - Musculoskeletal Musculoskeletal Comment(s): Patient bilateral feet examined and noted trace edema. Elongated and not well maintained toenails were noted bilaterally with some evidence of onychomycosis. Due to elongated non-trimmed toenails it was digging into the side of the toes. No drainage or discharge noted no clinical evidence of acute infection noted. No erythema detected. Toes were slightly sore over the areas of nail impact. Most marked findings were noted on the big toes. Musculoskeletal: Present: gait normal - Psychiatric Psychiatric: Present: A&O x's 3, appropriate affect - Allied health notes Allied health notes reviewed: nursing - Labs CBC & Chem 7: 12/15/18 08:32 01/05/19 08:11 Labs: Abnormal Lab Results - Last 24 Hours (Table) 01/05/19 Range/Units 08:11 Glucose 113 H (74-99) mg/dL Assessment and Plan (1) Onychomycosis of toenail Current Visit: Yes Status: Acute Code(s): B35.1 - TINEA UNGUIUM SNOMED Code(s): 207026263 Plan: Uncapped elongated and some onychomycosis of the toenails were noted bilateral toes. Most marked on the great toe and it was recommended to have podiatry see the patient for nail clipping and better pedicure care. No clinical evidence of acute bacterial infection at this point in time. Please call again if any help is needed for medical management of this patient. Time with Patient: Less than 30
[2019-01-05] MEDS: MELATONIN 5 MG TABLET PO SCH (20:40)
[2019-01-05] MEDS: LORazepam 1 MG TAB PO PRN (20:40)
[2019-01-06] MEDS: HALOPERIDOL 1 MG TAB PO SCH (07:55)
[2019-01-06] MEDS: MULTIVITAMINS, PEDIATRIC 1 EACH CHEWABLE PO SCH (07:55)
[2019-01-06] MEDS: ACETAMINOPHEN TAB 325 MG TAB PO PRN ×2 (07:55→12:18)
[2019-01-06] MEDS: MAGNESIUM HYDROXIDE 2,400 MG/10 ML CUP PO PRN (08:54)
[2019-01-06] MEDS ORDERED: ARIPiprazole 5 MG TAB PO SCH (09:00)
--- NOTE | 2019-01-06 09:46 | P.PN ---
Progress Note - Text Progress Note Date: 01/06/19 Interval History: Patient was seen this morning in the hallways and was agreeable to speak with television writer. Patient states that she is doing better with regards her medications however states that she is feeling a little bit tired in the morning. 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 Patient states that she stopped hallucinating at night because of the Haldol and claims that she is able to sleep throughout the night well. Patient claims that she is doing overall better and does not appear to be responding to internal stimuli and is calm and directable and polite. Patient states that she is using Maalox and milk of magnesia for constipation. At this time patient denies any suicidal or homical ideations, intent or plan. Patient denies any auditory, visual hallucinations and denies any paranoia or delusions. Patient denies any side effects from the medications and has been compliant with meds. Mental Status Exam: General Appearance: Patient appears to be stated age is alert, pleasant, and cooperative. Behavior: Patient is calmly seated without any agitated behavior. Speech: Patient's speech is fluent and nonpressured. Mood/Affect: Patient reports their mood is improving, affect is congruent and constricted. Suicidality/Homicidality: Patient denies having any suicidal or homicidal ideation intent or plan. Perceptions: Auditory visual hallucinations improving mildly. Though content/process: thought process is linear and goal-directed Memory and concentration: AOX3, grossly intact for the purposes of this session Judgment and insight: Improving Assessment Schizophrenia Plan: -Patient continues to meet criteria for inpatient psychiatric admission for symptom stabilization and safety. Patient is currently deferral in the court process. -Medications: Will continue with cross titration of antipsychotics. Decreased Abilify to 2.5 mg daily starting tomorrow and increased Haldol to 2 mg every morning +5 mg at night for psychosis. -Will discuss with patient the recommendation for long-acting injection of Hald ol near future. -When necessary Ativan for agitation/aggression. -Reviewed blood work and EKG. QTc - 414 performed on EKG yesterday. -SW on board for discharge planning. Patient likely will be discharged to a adult foster care once psychiatrically stable.
[2019-01-06] MEDS: MELATONIN 5 MG TABLET PO SCH (20:33)
[2019-01-06] MEDS: HALOPERIDOL 5 MG TAB PO SCH (20:33)
[2019-01-06] MEDS: MAG HYDROX/AL HYDROX/SIMETH 30 ML CUP PO PRN (20:35)
[2019-01-06] MEDS: LORazepam 1 MG TAB PO PRN (21:25)
[2019-01-07] MEDS: HALOPERIDOL 2 MG TAB PO SCH (08:38)
[2019-01-07] MEDS: MULTIVITAMINS, PEDIATRIC 1 EACH CHEWABLE PO SCH (08:38)
[2019-01-07] MEDS ORDERED: ARIPiprazole 5 MG TAB PO SCH (09:00)
--- NOTE | 2019-01-07 11:08 | P.PN ---
Progress Note - Text Progress Note Date: 01/07/19 Interval History: Patient was seen in the hallways and was agreeable to speak with comic book writer. Karmen ent states that she feels a little less groggy this morning and feels a lot more optimistic/hopeful for the future. She states that she would like to eventually start working again and spoke of the importance of her medication in her healing. She states that she is not hallucinating at night and is able to sleep through the night. Patient denies any tremors or any symptoms of EPS. Patient still has some delusional thinking however is mildly improving. Patient claims that she has been going to groups and participating as much as she can. Patient continues to ask comic book writer for B12 supplements however patient was reassured that her B12 level was within normal limits and should not be exceeded. At this time patient denies any suicidal or homical ideations, intent or plan. Patient denies any auditory, visual hallucinations and denies any paranoia or delusions. Patient denies any side effects from the medications and has been compliant with meds. Mental Status Exam: General Appearance: Patient appears to be stated age is alert, pleasant, and cooperative. Behavior: Patient is calmly seated without any agitated behavior. Speech: Patient's speech is fluent and nonpressured. Mood/Affect: Patient reports their mood is improving, affect is congruent and constricted. Suicidality/Homicidality: Patient denies having any suicidal or homicidal ideation intent or plan. Perceptions: Auditory visual hallucinations improving mildly. Though content/process: thought process is linear and goal-directed, some delusional thinking. Memory and concentration: AOX3, grossly intact for the purposes of this session Judgment and insight: Improving Assessment Schizophrenia Plan: -Patient continues to meet criteria for inpatient psychiatric admission for symptom stabilization and safety. Patient is currently deferral in the court process. -Medications: Will discontinue Abilify at this time. We'll continue on Haldol 2 mg every morning +5 mg daily at bedtime for psychosis. -Will discuss with patient the recommendation for long-acting injection of Haldol near future. -When necessary Geodon and Ativan for agitation/aggression. -SW on board for discharge planning. Patient likely will be discharged to a adult foster care once psychiatrically stable. Likely discharge next week
[2019-01-07] MEDS: ACETAMINOPHEN TAB 325 MG TAB PO PRN (11:56)
[2019-01-07] MEDS: MELATONIN 5 MG TABLET PO SCH (20:41)
[2019-01-07] MEDS: HALOPERIDOL 5 MG TAB PO SCH (20:41)
[2019-01-08] MEDS: MULTIVITAMINS, PEDIATRIC 1 EACH CHEWABLE PO SCH (09:15)
[2019-01-08] MEDS: HALOPERIDOL 2 MG TAB PO SCH (09:15)
--- NOTE | 2019-01-08 10:14 | P.PN ---
Progress Note - Text Progress Note Date: 01/08/19 Interval History: Patient was seen in group this morning and was willing to speak to marketing underwriter and room. Patient was calm and directable today and appeared to be somewhat more polite. Patient states that she continues to feel somewhat groggy in the morning and anxious as well. She states that this is happened in the past with similar med changes. Patient describes going to groups and trying to participate in getting along with other patients better. She states that she is sleeping better now on this medication. She continues to be somatically preoccupied. At this time patient denies any suicidal or homical ideations, intent or plan. Patient denies any auditory, visual hallucinations and denies any paranoia or delusions. Patient has been compliant with meds. Mental Status Exam: General Appearance: Patient appears to be stated age is alert, pleasant, and cooperative. Hygiene and grooming improving Behavior: Patient is calmly seated without any agitated behavior. Speech: Patient's speech is fluent and nonpressured. Mood/Affect: Patient reports their mood is improving, affect is congruent and constricted. Suicidality/Homicidality: Patient denies having any suicidal or homicidal ideation intent or plan. Perceptions: Auditory visual hallucinations improving mildly. Though content/process: thought process is linear and goal-directed, some delusional thinking. Memory and concentration: AOX3, grossly intact for the purposes of this session Judgment and insight: Improving Assessment Schizophrenia Plan: -Patient continues to meet criteria for inpatient psychiatric admission for symptom stabilization and safety. Patient is currently deferral in the court process. -Medications: We'll continue on Haldol 2 mg every morning +5 mg daily at bedtime for psychosis. If need be over the weekend will increase Haldol as needed to control symptoms. -Will discuss with patient the recommendation for long-acting injection of Haldol near future. -When necessary Geodon and Ativan for agitation/aggression. -SW on board for discharge planning. Patient likely will be discharged to a adult foster care once psychiatrically stable. Patient to meet with [facility] provider either today or over the weekend. Likely discharge next week
[2019-01-08] MEDS: LORazepam 1 MG TAB PO PRN (14:00)
[2019-01-08] MEDS: HALOPERIDOL 5 MG TAB PO SCH (21:05)
[2019-01-08] MEDS: MELATONIN 5 MG TABLET PO SCH (21:05)
[2019-01-09] MEDS: MULTIVITAMINS, PEDIATRIC 1 EACH CHEWABLE PO SCH (09:05)
[2019-01-09] MEDS: HALOPERIDOL 2 MG TAB PO SCH (09:05)
--- NOTE | 2019-01-09 13:18 | P.PN ---
Progress Note - Text Progress Note Date: 01/09/19 Interval history: Patient is seen in cross coverage today. She was found in the dining room eating lunch. She is seen with female nursing staff present. She relates that she is taking her psychotropic medications and does not voice any adverse side effects. She says she slept 8 hours last night. She seems to be eating well. Mental status exam: She is alert and cooperative with the interview. Her speech is fluent, not rapid or pressured. Speech is somewhat quiet. She does not present with any agitation. When asked about hallucinations she makes some reference to dreams when she is sleeping, relays that they are not nightmares. She does not verbalize any thoughts of harm to self or others. She relays the only bothersome thoughts she has is that she wants to get her pension and Social Security back from her sister. Plan: Patient will be maintained on current psychotropic medication regimen. Continue to monitor for any medication side effects and monitor her ongoing response to treatment. We'll continue to cover this patient through the weekend.
[2019-01-09] MEDS: MAG HYDROX/AL HYDROX/SIMETH 30 ML CUP PO PRN (16:10)
[2019-01-09] MEDS: HALOPERIDOL 5 MG TAB PO SCH (21:50)
[2019-01-09] MEDS: MELATONIN 5 MG TABLET PO SCH (21:50)
[2019-01-10] MEDS: HALOPERIDOL 2 MG TAB PO SCH (08:47)
[2019-01-10] MEDS: MULTIVITAMINS, PEDIATRIC 1 EACH CHEWABLE PO SCH (08:47)
[2019-01-10] MEDS: ACETAMINOPHEN TAB 325 MG TAB PO PRN ×2 (11:12→21:38)
--- NOTE | 2019-01-10 11:55 | P.PN ---
Progress Note - Text Progress Note Date: 01/10/19 Interval history: Patient is seen in cross coverage today. She reports she slept about 5 hours last night. She says she is eating well. She has been doing some walking around the unit. She makes reference to looking into a program that would be like a support type system. Mental status exam: She is alert and cooperative with the interview. Her speech is fluent, not rapid or pressured. Thought processes are organized. Her mood she describes a little down today related to being in the hospital for so long. She denies any thoughts of harm to self or others, she does not report any hallucinations. She does not verbalize any bothersome thinking. Plan: Patient will be maintained on current psychotropic medication regimen. We'll continue to monitor for medication side effects and monitor her ongoing response to treatment.
[2019-01-10] MEDS: MELATONIN 5 MG TABLET PO SCH (21:11)
[2019-01-10] MEDS: HALOPERIDOL 5 MG TAB PO SCH (21:11)
[2019-01-11] MEDS: MULTIVITAMINS, PEDIATRIC 1 EACH CHEWABLE PO SCH (08:54)
[2019-01-11] MEDS: HALOPERIDOL 2 MG TAB PO SCH (08:54)
[2019-01-11 09:25] VITALS: BMI 32.1
[2019-01-11] MEDS ORDERED: HALOPERIDOL DECANOATE 100 MG/ML 1 ML VIAL IM STA (10:52)
--- NOTE | 2019-01-11 11:29 | P.PN ---
Progress Note - Text Progress Note Date: 01/11/19 Interval History: Patient was seen in the hallway and was agreeable to speak with procedure writer. Patient states that she has been attending groups and states that she is feeling a lot better since the switch of medications. Patient claims that she is thinking clearer and denies any more hallucinations at night. She states that she is sleeping through the night. Patient's insight is gradually improving. She did admit to having some nausea and dizziness after taking the medications and states that she's been laying down afterwards which has been really helping. She claims her mood is good and denies any depressive symptoms or anxiety. At this time patient denies any suicidal or homical ideations, intent or plan. Patient denies any auditory, visual hallucinations and denies any paranoia or delusions. Patient has been compliant with meds. Mental Status Exam: General Appearance: Patient appears to be stated age is alert, pleasant, and cooperative. Hygiene and grooming improving Behavior: Patient is calmly seated without any agitated behavior. Speech: Patient's speech is fluent and nonpressured. Mood/Affect: Patient reports their mood is improving, affect is congruent and constricted. Suicidality/Homicidality: Patient denies having any suicidal or homicidal ideation intent or plan. Perceptions: Auditory visual hallucinations improving mildly. Though content/process: thought process is linear and goal-directed, some delusional thinking. Memory and concentration: AOX3, grossly intact for the purposes of this session Judgment and insight: Improving Assessment Schizophrenia Plan: -Patient continues to meet criteria for inpatient psychiatric admission for symptom stabilization and safety. Patient is currently a deferral in the court process. -Medications: Discussed with patient the benefits, alternatives and side effects of starting Haldol Decanoate long-acting injection to ensure med compliance for psychosis and patient verbally agreed and understood and elected to take the injection today. Order for 100 mg Haldol Decanoate IM today. We'll observe for tomorrow and give an extra 25 mg on Friday. We will titrate off by mouth Haldol at this time. -When necessary Geodon and Ativan for agitation/aggression. -SW on board for discharge planning. Patient likely will be discharged to a adult foster care once psychiatrically stable. Likely discharge Friday to shelter where guardian deems appropriate.
[2019-01-11] MEDS: LORazepam 1 MG TAB PO PRN (18:22)
[2019-01-11] MEDS: HALOPERIDOL 5 MG TAB PO SCH (20:51)
[2019-01-11] MEDS: MELATONIN 5 MG TABLET PO SCH (20:51)
[2019-01-12] MEDS: MULTIVITAMINS, PEDIATRIC 1 EACH CHEWABLE PO SCH (08:51)
--- NOTE | 2019-01-12 12:25 | P.PN ---
Progress Note - Text Progress Note Date: 01/12/19 Interval History: Patient was seen this morning wandering the hallways and was agreeable to speak to content writer, was directable and appropriate. Patient claimed that she has been attending groups and feels a lot more "positive". She states that the groups are helping her deal with her coping skills and allows her to express her mind. She states that she received the Haldol decannulated injection yesterday and tolerated it well with no side effects. Patient continues to be on board with the next dose being given on Friday. Patient states that she is been staying positive about finding a place to live once she leaves the hospital. Patient was encouraged to speak with her guardian over the phone to assist her with this as patient currently does not have income. Patient spoke about wanting to potentially investigate more as to why she is not receiving her Social Security and threatened to dhruv people if she does not get it as she feels that she is entitled right now. At this time patient denies any suicidal or homical ideations, intent or plan. Patient denies any auditory, visual hallucinations and denies any paranoia or delusions. Patient denies any side effects from the medications and has been compliant with meds. Mental Status Exam: General Appearance: Patient appears to be stated age is alert, pleasant, and cooperative. Hygiene and grooming improving Behavior: Patient is calmly seated without any agitated behavior. Speech: Patient's speech is fluent and nonpressured. Mood/Affect: Patient reports their mood is improving, affect is congruent and constricted. Suicidality/Homicidality: Patient denies having any suicidal or homicidal ideation intent or plan. Perceptions: Auditory visual hallucinations improving mildly. Though content/process: thought process is linear and goal-directed, some delusional thinking. Memory and concentration: AOX3, grossly intact for the purposes of this session Judgment and insight: Improving Assessment Schizophrenia Plan: -Patient continues to meet criteria for inpatient psychiatric admission for symptom stabilization and safety. -Medications: Patient received Haldol Decanoate 100 mg long-acting injection on 01/11/2019 and is set to get her extra 25 mg IM dose on Friday. From then on patient will be able to receive Haldol Decanoate 125 mg every 4 weeks. Discontinued the by mouth Haldol at this time. -When necessary Geodon and Ativan for agitation/aggression. -SW on board for discharge planning. Patient likely will be discharged to a adult foster care once psychiatrically stable. dock worker and patient were encouraged to follow-up with guardian about placement and can be discharged whenever a place is found.
[2019-01-12] MEDS: ACETAMINOPHEN TAB 325 MG TAB PO PRN (14:28)
[2019-01-12] MEDS: MAGNESIUM HYDROXIDE 2,400 MG/10 ML CUP PO PRN (14:29)
[2019-01-12] MEDS: MELATONIN 5 MG TABLET PO SCH (20:20)
[2019-01-13] MEDS: LORazepam 1 MG TAB PO PRN (01:05)
[2019-01-13] MEDS: MULTIVITAMINS, PEDIATRIC 1 EACH CHEWABLE PO SCH (09:06)
--- NOTE | 2019-01-13 09:34 | P.PN ---
Progress Note - Text Progress Note Date: 01/13/19 Interval History: Patient was seen coming out of breakfast this morning and was agreeable to spe ech to commercial real estate underwriter in the office. Patient claims that she is tolerating the medications well at this time and states that the Haldol is really helped her. She claims that she does not feel any stomach issues as she is only on the unit injection of Haldol at this time. Patient claims that she is still attempting to reach her guardian and making alternative plans as to where she can live and go and claims that not having money is a big barrier for her. Patient states that her mood is improving patient appears to have improved insight and judgment at this time. She denies any anxiety or any manic symptoms. He does state that she sleeping better and eating good and attending groups. At this time patient denies any suicidal or homical ideations, intent or plan. Patient denies any auditory, visual hallucinations and denies any paranoia or delusions. Patient denies any side effects from the medications and has been compliant with meds. Mental Status Exam: General Appearance: Patient appears to be stated age is alert, pleasant, and cooperative. Hygiene and grooming improving Behavior: Patient is calmly seated without any agitated behavior. Speech: Patient's speech is fluent and nonpressured. Mood/Affect: Patient reports their mood is improving, affect is congruent and constricted. Suicidality/Homicidality: Patient denies having any suicidal or homicidal ideation intent or plan. Perceptions: Auditory visual hallucinations improving mildly. Though content/process: thought process is linear and goal-directed, some delusional thinking. Memory and concentration: AOX3, grossly intact for the purposes of this session Judgment and insight: Improving Assessment Schizophrenia Plan: -Medications: Patient received Haldol Decanoate 100 mg long-acting injection on 01/11/2019 and is set to get her extra 25 mg IM dose today at noon. From then on patient will be able to receive Haldol Decanoate 125 mg every 4 weeks. Discontinued the by mouth Haldol. -When necessary Geodon and Ativan for agitation/aggression. -SW on board for discharge planning. Patient was encouraged to follow-up with guardian about placement and can be discharged whenever a place is found. social worker to follow up with guardian on current status of placement.
[2019-01-13] MEDS ORDERED: HALOPERIDOL DECANOATE 50 MG/ML 1 ML VIAL IM ONE (12:00)
[2019-01-13] MEDS: MELATONIN 5 MG TABLET PO SCH (21:36)
[2019-01-14] MEDS: LORazepam 1 MG TAB PO PRN ×2 (00:14→20:32)
[2019-01-14] MEDS: MULTIVITAMINS, PEDIATRIC 1 EACH CHEWABLE PO SCH (08:31)
--- NOTE | 2019-01-14 09:12 | P.PN ---
Progress Note - Text Progress Note Date: 01/14/19 Interval History: Patient was seen this morning near the phones and was agreeable and directable to be interviewed by screenplay writer in the office. Patient states that she is trying to make phone calls and try to make arrangements to be discharged to different homes and looking at different options for placement however states that she is not able to get in touch with her guardian. Patient asked screenplay writer several times if he knew different ways to get in touch with them and what kind of help he can provide. Patient states that there was some negative comments towards her yesterday by another patient on the unit however she states that she warned the other person to stop and then informed unit staff appropriately, patient was acknowledged for her appropriateness and good choice. Patient claims that she is going to groups and trying to participate. She states she is sleeping good at night and has a fair appetite. She states that her mood is "okay", denies any depressive symptoms at this time. At this time patient denies any suicidal or homical ideations, intent or plan. Patient denies any auditory, visual hallucinations and denies any paranoia or delusions. Patient denies any side effects from the medications and has been compliant with meds. Mental Status Exam: General Appearance: Patient appears to be stated age is alert, pleasant, and cooperative. Hygiene and grooming improving Behavior: Patient is calmly seated without any agitated behavior. Speech: Patient's speech is fluent and nonpressured. Mood/Affect: Patient reports their mood is "okay", affect is congruent and constricted. Suicidality/Homicidality: Patient denies having any suicidal or homicidal ideation intent or plan. Perceptions: At this time patient denies any visual or auditory hallucinations. Though content/process: thought process is linear and goal-directed, some delusional thinking which has improved and patient perseverates on it less. Memory and concentration: AOX3, grossly intact for the purposes of this session Judgment and insight: Improving Assessment Schizophrenia Plan: -Medications: Patient received Haldol Decanoate 100 mg long-acting injection on 01/11/2019 and got an additional 25 mg IM dose on 01/13/2019. Patient will be due for her next Haldol decanoate 125 mg IM dose on 03/10/2019. From then on patient will be able to receive Haldol Decanoate 125 mg every 4 weeks. -When necessary Geodon and Ativan for agitation/aggression. -SW on board for discharge planning. Patient was encouraged to follow-up with guardian about placement and can be discharged whenever a place is found. clam bed worker to follow up with guardian on current status of placement.
[2019-01-14] MEDS: ACETAMINOPHEN TAB 325 MG TAB PO PRN ×2 (11:34→21:06)
[2019-01-14] MEDS: MELATONIN 5 MG TABLET PO SCH (20:32)
[2019-01-15] MEDS: MULTIVITAMINS, PEDIATRIC 1 EACH CHEWABLE PO SCH (08:38)
[2019-01-15] MEDS: ACETAMINOPHEN TAB 325 MG TAB PO PRN ×2 (08:38→16:14)
--- NOTE | 2019-01-15 11:27 | P.PN ---
Progress Note - Text Progress Note Date: 01/15/19 Interval History: patient was seen in the hallways and was agreeable to speak to feature writer in the o ffice. Patient states that she is continuing to feel anxious about not being discharged however remains polite and cooperative. Patient was somewhat bizarre and delusional today speaking about her wound and liver processing medications too quickly. Patient claims that she is being cooperative and helpful to other patients and attending groups. She states that she is sleeping okay at night and denies any "hallucinations". Patient's insight and judgment are fair. Discussed with patient the need to bridge IM medication with oral and patient agreed. At this time patient denies any suicidal or homical ideations, intent or plan. Patient denies any auditory, visual hallucinations. Patient denies any side effects from the medications and has been compliant with meds. Mental Status Exam: General Appearance: Patient appears to be stated age is alert, pleasant, and cooperative. Hygiene and grooming improving Behavior: Patient is calmly seated without any agitated behavior. Speech: Patient's speech is fluent and nonpressured. Mood/Affect: Patient reports their mood is "fine", affect is congruent and constricted. Suicidality/Homicidality: Patient denies having any suicidal or homicidal ideation intent or plan. Perceptions: At this time patient denies any visual or auditory hallucinations. Though content/process: thought process is linear and goal-directed, some delusional thinking which has improved and patient perseverates on it less. Memory and concentration: AOX3, grossly intact for the purposes of this session Judgment and insight: Improving Assessment Schizophrenia Plan: -Medications: Patient received Haldol Decanoate 100 mg long-acting injection on 01/11/2019 and got an additional 25 mg IM dose on 01/13/2019. Patient will be due for her next Haldol decanoate 125 mg IM dose on 03/10/2019. -Patient is requiring Haldol PO supplmentation at this time. will restart Haldol at 3 mg twice a day for psychosis. Increase as tolerated. -When necessary Geodon and Ativan for agitation/aggression. -SW on board for discharge planning. Patient was encouraged to follow-up with guardian about placement and can be discharged whenever a place is found. printed circuit board reworker to follow up with guardian on current status of placement.
[2019-01-15] MEDS: HALOPERIDOL 1 MG TAB PO SCH ×2 (12:06→20:48)
[2019-01-15] MEDS: MELATONIN 5 MG TABLET PO SCH (20:49)
[2019-01-16] MEDS: HALOPERIDOL 1 MG TAB PO SCH ×2 (09:23→20:01)
[2019-01-16] MEDS: MULTIVITAMINS, PEDIATRIC 1 EACH CHEWABLE PO SCH (09:24)
[2019-01-16] MEDS: ACETAMINOPHEN TAB 325 MG TAB PO PRN (16:40)
[2019-01-16] MEDS: MAGNESIUM HYDROXIDE 2,400 MG/10 ML CUP PO PRN (18:28)
--- NOTE | 2019-01-16 18:39 | PN ---
PROGRESS NOTE DATE OF SERVICE: 01/16/2019. CHIEF COMPLAINT: The patient had delusions, paranoid thinking, and disorganized behavior. INTERVAL HISTORY: Patient has been doing fair. She had a quiet evening last night. She comes out in the day area. She has been attending most of the groups. She slept fairly well last night by her report. Today she has been up, she attended 1 group this morning and not another. She seems to have a quiet manner which she is in group. She will interact some with others. She will wander about the unit. When I talked to her, she had no specific complaints. She felt that she was doing better with her mood. She talked quite a bit about some of the problems she had with her family before coming into the hospital. It was not clear what was actually relevant. She had no specific complaints and tolerates her medications well. MENTAL STATUS: Patient sat without restlessness. She gave fairly good eye contact. She answered questions with direct responses. Her thoughts were clear. A fair amount of her answers were somewhat vague, though generally she talked in a coherent manner. Her affect was somewhat blunted. She smiled a little. She had a calm manner. Her mood was reserved. She did not appear to be significantly distressed. She did seem to demonstrate some thoughts of unreality. ASSESSMENT: I will continue the current diagnosis and treatment plan. I will continue psychotropic medications the same. We reviewed her medications and the fact that her Haldol has been increased. She seems to be not having any difficulties with that. We will continue to focus on stabilization and discharge planning. MMTOML / IJN: [id number] /
[2019-01-16] MEDS: MELATONIN 5 MG TABLET PO SCH (20:01)
[2019-01-17] MEDS: MULTIVITAMINS, PEDIATRIC 1 EACH CHEWABLE PO SCH (09:57)
[2019-01-17] MEDS: HALOPERIDOL 1 MG TAB PO SCH ×2 (09:57→20:45)
[2019-01-17] MEDS: ACETAMINOPHEN TAB 325 MG TAB PO PRN ×2 (11:52→17:24)
--- NOTE | 2019-01-17 19:29 | PN ---
PROGRESS NOTE DATE OF SERVICE: 01/17/2019. CHIEF COMPLAINT: The patient had delusions, paranoid thinking, and disorganized behavior. INTERVAL HISTORY: The patient has been doing fair. She had a quiet evening last night. She comes out in the day area. She does wander around some. She will interact a little with others, though she also seems to have a quiet manner and is fairly reserved. She said she slept well last night. Today she has been up. She attended groups today. She was focused mainly on discharge planning and what options she has for some possible living situations. She asked about [facility] and some other possibilities. She said she is doing fairly well in her mood. She has a better outlook. She does not seem to show too much for anxiety or stress reactions. She tolerates psychotropic medications. MENTAL STATUS: Patient sat with a little restlessness. She had good eye contact. She answered questions appropriately. Her thoughts were generally clear, though at times she could be a little vague and would make some tangential comments. Her affect was a little constricted. She had a calm manner. Her mood was reserved, though not clearly down or depressed. She did smile a little. It was difficult to assess any question of underlying thought disorder. Cognition was clear. ASSESSMENT: I will continue the current diagnosis and treatment plan. I will continue psychotropic medications the same. We reviewed housing issues and discharge planning. The patient will be coordinating with the criminal justice social worker tomorrow to begin to identify a home situation that hopefully will be reasonable for her. We will continue to focus on stabilization and discharge planning. KELSEY / JUAN: [id number] /
[2019-01-17] MEDS: MELATONIN 5 MG TABLET PO SCH (20:45)
[2019-01-17] MEDS: LORazepam 1 MG TAB PO PRN (20:46)
[2019-01-18] MEDS: HALOPERIDOL 1 MG TAB PO SCH ×2 (08:39→20:40)
[2019-01-18] MEDS: MULTIVITAMINS, PEDIATRIC 1 EACH CHEWABLE PO SCH (08:39)
--- NOTE | 2019-01-18 13:22 | P.PN ---
Progress Note - Text Progress Note Date: 01/18/19 Interval History: Patient was seen wandering the hallways and was agreeable to speak to automobile and property underwriter in the office. Patient today appeared to be on warm and frustrated with her financial situation and her still being in the hospital. Patient was reassured and claims that her guardian is working on her case to find her a place to live. Patient states that she is getting along with other patients and going to groups and finding them helpful. She states that her appetite and energy are good. She claims that the Haldol has been really helping her with her thoughts and "hallucinations". Patient claims that she is sleeping well at night and not hearing any voices. She denies any side effects from medications. At this time patient denies any suicidal or homical ideations, intent or plan. Patient denies any auditory, visual hallucinations and denies any paranoia or delusions. Mental Status Exam: General Appearance: Patient appears to be stated age is alert, pleasant, and cooperative. Hygiene and grooming improving Behavior: Patient is calmly seated without any agitated behavior. Speech: Patient's speech is fluent and nonpressured. Mood/Affect: Patient reports their mood is "ok", affect is congruent and constricted. Suicidality/Homicidality: Patient denies having any suicidal or homicidal ideation intent or plan. Perceptions: At this time patient denies any visual or auditory hallucinations. Though content/process: thought process is linear and goal-directed, some delusional thinking which has improved and patient perseverates on it less. Memory and concentration: AOX3, grossly intact for the purposes of this session Judgment and insight: Improving Assessment Schizophrenia Plan: -Medications: Patient received Haldol Decanoate 100 mg long-acting injection on 01/11/2019 and got an additional 25 mg IM dose on 01/13/2019. Patient will be due for her next Haldol decanoate dose on 03/10/2019. -Patient is requiring Haldol PO supplmentation at this time. will continue with Haldol at 3 mg twice a day for psychosis. Will Increase as tolerated. -When necessary Geodon and Ativan for agitation/aggression. -SW on board for discharge planning. Patient was encouraged to follow-up with guardian about placement and can be discharged whenever a place is found. grain oilseed or pasture farm worker to follow up with guardian on current status of placement.
[2019-01-18] MEDS: MAGNESIUM HYDROXIDE 2,400 MG/10 ML CUP PO PRN (15:33)
[2019-01-18] MEDS: MELATONIN 5 MG TABLET PO SCH (20:41)
[2019-01-18] MEDS: LORazepam 1 MG TAB PO PRN (20:42)
--- NOTE | 2019-01-19 09:06 | P.PN ---
Progress Note - Text Progress Note Date: 01/19/19 Interval History: Patient was seen coming out of the dining kim and was agreeable to speak to sheridan drake in the office. Patient states that she spoke with one of the managers at a [facility] yesterday and states that he is able to have her stay there. Patient also claims that she was trying to reach her public guardian but has no luck. Patient claims that she is feeling sad as she is seeing other patients leave the unit and she is still on the unit with no discharge plan. Patient claims that h er mood and anxiety are fair and claims that she is sleeping well at night has good energy and taking her medications. Patient claims that she is participating in groups as best as she can. At this time patient denies any suicidal or homical ideations, intent or plan. Patient denies any auditory, visual hallucinations and denies any paranoia or delusions. Patient denies any side effects from the medications. Mental Status Exam: General Appearance: Patient appears to be stated age is alert, pleasant, and cooperative. Hygiene and grooming improving Behavior: Patient is calmly seated without any agitated behavior. Speech: Patient's speech is fluent and nonpressured. Mood/Affect: Patient reports their mood is "fair", affect is congruent and constricted. Suicidality/Homicidality: Patient denies having any suicidal or homicidal ideation intent or plan. Perceptions: At this time patient denies any visual or auditory hallucinations. Though content/process: thought process is linear and goal-directed, less delusional thinking which has improved. Memory and concentration: AOX3, grossly intact for the purposes of this session Judgment and insight: Improving Assessment Schizophrenia Plan: -Medications: Patient received Haldol Decanoate 100 mg long-acting injection on 01/11/2019 and got an additional 25 mg IM dose on 01/13/2019. Patient will be due for her next Haldol decanoate dose on 03/10/2019, likely 150mg. -Continue with Haldol PO supplmentation at this time, Haldol at 3 mg twice a day for psychosis. Will Increase as tolerated/needed -When necessary Geodon and Ativan for agitation/aggression. -SW on board for discharge planning. Patient was encouraged to follow-up with guardian about placement and can be discharged whenever a place is found. terrazzo worker apprentice to follow up with guardian on current status of placement.
[2019-01-19] MEDS: HALOPERIDOL 1 MG TAB PO SCH ×3 (09:37→20:24)
[2019-01-19] MEDS: MULTIVITAMINS, PEDIATRIC 1 EACH CHEWABLE PO SCH (09:37)
[2019-01-19] MEDS: MELATONIN 5 MG TABLET PO SCH (20:20)
[2019-01-20] MEDS: MULTIVITAMINS, PEDIATRIC 1 EACH CHEWABLE PO SCH (08:02)
[2019-01-20] MEDS: HALOPERIDOL 1 MG TAB PO SCH ×2 (11:20→21:13)
--- NOTE | 2019-01-20 11:22 | P.PN ---
Progress Note - Text Progress Note Date: 01/20/19 Interval History: Patient was seen this morning wandering the hallways and was agreeable to speak to read in the office. Patient claims that she is feeling "upset at everybody" when she begins to speak about her not being able to be discharged to where she wants to go and how her guardian is letting her down. Patient states that she also feels like she needs to apologize as she spoke negatively of one of the social workers and claims that "she is not helping me and off". Patient stated that she did not get her morning medications and claims that there must've been a mixup. Other than the patient states that she has no other complaints and is doing well on the unit and attending groups and being social with others. She states that she is sleeping throughout the night has fair energy. At this time patient denies any suicidal or homical ideations, intent or plan. Patient denies any auditory, visual hallucinations and denies any paranoia or delusions. Patient denies any side effects from the medications and has been compliant with meds. Mental Status Exam: General Appearance: Patient appears to be stated age is alert, pleasant, and cooperative. Hygiene and grooming improving Behavior: Patient is calmly seated without any agitated behavior. Speech: Patient's speech is fluent and nonpressured. Mood/Affect: Patient reports their mood is "good", affect is congruent and constricted. Suicidality/Homicidality: Patient denies having any suicidal or homicidal ideation intent or plan. Perceptions: At this time patient denies any visual or auditory hallucinations. Though content/process: thought process is linear and goal-directed, less delusional thinking which has improved. Memory and concentration: AOX3, grossly intact for the purposes of this session Judgment and insight: Improving Assessment Schizophrenia Plan: -Medications: Patient received Haldol Decanoate 100 mg long-acting injection on 01/11/2019 and got an additional 25 mg IM dose on 01/13/2019. Patient will be due for her next Haldol decanoate dose on 03/10/2019, likely 150mg. -Continue with Haldol PO supplmentation at this time, Haldol at 3 mg twice a day for psychosis -When necessary Geodon and Ativan for agitation/aggression. -SW on board for discharge planning. laceworker has been continuing to try to reach out to the guardian however guardian has not been returning emails or calls. At this time will be demanding a meeting with guardian and patient at the hospital to decide on disposition
[2019-01-20] MEDS: ACETAMINOPHEN TAB 325 MG TAB PO PRN (16:33)
[2019-01-20] MEDS: LORazepam 1 MG TAB PO PRN (21:12)
[2019-01-20] MEDS: MELATONIN 5 MG TABLET PO SCH (21:13)
[2019-01-21] MEDS: HALOPERIDOL 1 MG TAB PO SCH ×2 (09:08→20:55)
[2019-01-21] MEDS: MULTIVITAMINS, PEDIATRIC 1 EACH CHEWABLE PO SCH (09:08)
--- NOTE | 2019-01-21 10:31 | P.PN ---
Progress Note - Text Progress Note Date: 01/21/19 Interval History: Patient was seen in the hallways and was agreeable to speak to read in the off ice. Patient states that she feels happy today as she is figured out a new plan to get off the unit. Patient claims that she would like to trying commence a transfer of guardianship to one of her sisters who lives in [place] who she claims is willing to do that for her. Patient states that she will need to go sign paperwork and get everything in order for that to happen and appears to be positive about this idea. Patient claims that she is feeling "calm" on the medication and claims it is really helping her. Patient has improved insight and judgment. She states that she slept well last night has a good energy level and has been attending groups and participating. At this time patient denies any suicidal or homical ideations, intent or plan. Patient denies any auditory, visual hallucinations and denies any paranoia or delusions. Patient denies any side effects from the medications and has been compliant with meds. Mental Status Exam: General Appearance: Patient appears to be stated age is alert, pleasant, and cooperative. Hygiene and grooming improving Behavior: Patient is calmly seated without any agitated behavior. Speech: Patient's speech is fluent and nonpressured. Mood/Affect: Patient reports their mood is "happy", affect is congruent and constricted. Suicidality/Homicidality: Patient denies having any suicidal or homicidal ideation intent or plan. Perceptions: At this time patient denies any visual or auditory hallucinations. Though content/process: thought process is linear and goal-directed, less delusional thinking which has improved. Memory and concentration: AOX3, grossly intact for the purposes of this session Judgment and insight: Improving Assessment Schizophrenia Plan: -Medications: Patient received Haldol Decanoate 100 mg long-acting injection on 01/11/2019 and got an additional 25 mg IM dose on 01/13/2019. Patient will be due for her next Haldol decanoate dose on 03/10/2019, likely 150mg. -Continue with Haldol PO supplmentation at this time, Haldol at 3 mg twice a day for psychosis. -When necessary Geodon and Ativan for agitation/aggression. -SW on board for discharge planning. rodding anode worker has been continuing to try to reach out to the guardian however guardian has not been returning emails or calls. The credit underwriter to meet with social media strategist and team to discuss any other options of discharge planning/disposition.
[2019-01-21] MEDS: ACETAMINOPHEN TAB 325 MG TAB PO PRN ×2 (11:02→20:57)
[2019-01-21] MEDS: LORazepam 1 MG TAB PO PRN ×2 (11:47→21:37)
[2019-01-21] MEDS: MELATONIN 5 MG TABLET PO SCH (20:55)
[2019-01-22] MEDS: MULTIVITAMINS, PEDIATRIC 1 EACH CHEWABLE PO SCH (08:47)
[2019-01-22] MEDS: HALOPERIDOL 1 MG TAB PO SCH ×2 (08:48→21:24)
--- NOTE | 2019-01-22 15:12 | P.PN ---
Progress Note - Text Progress Note Date: 01/22/19 Interval History: Patient was seen wandering the hallways and was agreeable to speak to editorial writer. Patient had a bright affect and appeared to be very happy today. She states that she spoke with her sister and the [place] who is currently driving up to [place] to see her. She states that her sister is able to an agreeable to be her guardian and have her live with her in [place]. Patient states that her current guardian is okay with this plan and states that she is working with the social service agency director to get this plan going. Patient claims that her mood is "excellent" and denies any anxiety. She denies any problems with any other patients and claims she is sleeping well at night and eating well. She has a good energy level. At this time patient denies any suicidal or homical ideations, intent or plan. Patient denies any auditory, visual hallucinations and denies any paranoia or delusions. Patient denies any side effects from the medications and has been compliant with meds. Mental Status Exam: General Appearance: Patient appears to be stated age is alert, pleasant, and co operative. Hygiene and grooming improving Behavior: Patient is calmly seated without any agitated behavior. Speech: Patient's speech is fluent and nonpressured. Mood/Affect: Patient reports their mood is "excellent", affect is congruent and constricted. Suicidality/Homicidality: Patient denies having any suicidal or homicidal ideation intent or plan. Perceptions: At this time patient denies any visual or auditory hallucinations. Though content/process: thought process is linear and goal-directed, less delusional thinking which has improved. Memory and concentration: AOX3, grossly intact for the purposes of this session Judgment and insight: Improving Assessment Schizophrenia Plan: -Medications: Patient received Haldol Decanoate 100 mg long-acting injection on 01/11/2019 and got an additional 25 mg IM dose on 01/13/2019. Patient will be due for her next Haldol decanoate dose on 03/10/2019, likely 150mg. -Continue with Haldol PO supplmentation at this time, Haldol at 3 mg twice a day for psychosis. -When necessary Geodon and Ativan for agitation/aggression. -SW on board for discharge planning. Patient along with sister will be coming in for a meeting on the unit on Friday to discuss discharge plans further.
[2019-01-22] MEDS: LORazepam 1 MG TAB PO PRN (21:25)
[2019-01-22] MEDS: MELATONIN 5 MG TABLET PO SCH (21:25)
[2019-01-23] MEDS: MULTIVITAMINS, PEDIATRIC 1 EACH CHEWABLE PO SCH (08:32)
[2019-01-23] MEDS: HALOPERIDOL 1 MG TAB PO SCH ×2 (08:32→20:10)
--- NOTE | 2019-01-23 11:13 | P.PN ---
Progress Note - Text Progress Note Date: 01/23/19 Interval history: Patient was seen wandering the hallways about to do her laundry was agreeable to speak to mortgage or loan underwriter. Patient was calm and directable this morning and appeared to have a very bright affect and was smiling. She states that she is happy and cannot wait for Friday for her sister to come and get her. Patient claims that she has been doing well on the unit and denies any other problems overnight. She states that she is taking her medications well. It was discussed with patient about the need for future long-acting injection monthly with her outpatient psychiatrist. Patient has been attending groups has a fair energy level and sleeping well at night. At this time patient denies any suicidal or homicidal ideations intent or plan. Denies any Auditory or visual hallucinations. Patient denies any side effects from the medications and has been compliant with meds. Mental status exam: General Appearance: Patient appears to be stated age is alert, pleasant, and cooperative. With good hygiene and grooming. Behavior: No agitated behavior. Patient is calm and directable Speech: Patient's speech is fluent and nonpressured. Mood/Affect: Mood is improving, affect is congruent and constricted. Suicidality/Homicidality: Patient denies having any suicidal or homicidal id eation intent or plan. Perceptions: Patient denies any auditory or visual hallucinations. Though content/process: There is no evidence of any delusional thought content and thought process is linear and goal-directed. Memory and concentration: AOX3, grossly intact for the purposes of this session Judgment and insight: improving Assessment/Plan: Continue with current diagnosis. Patient continues to meet criteria for inpatient psychiatric admission for symptom stabilization and safety.[Patient will be maintained on current psychotropic medication regimen.] Monitor for medication compliance and for any psychotropic medication side effects. Will continue to monitor ongoing response to treatment.
[2019-01-23] MEDS: ACETAMINOPHEN TAB 325 MG TAB PO PRN (11:34)
[2019-01-23] MEDS: LORazepam 1 MG TAB PO PRN (14:36)
[2019-01-23] MEDS: MELATONIN 5 MG TABLET PO SCH (20:11)
[2019-01-24] MEDS: MULTIVITAMINS, PEDIATRIC 1 EACH CHEWABLE PO SCH (07:56)
[2019-01-24] MEDS: HALOPERIDOL 1 MG TAB PO SCH ×2 (07:56→20:28)
--- NOTE | 2019-01-24 10:18 | P.PN ---
Progress Note - Text Progress Note Date: 01/24/19 Interval history: Patient was seen wandering the hallways and was agreeable to speak to continuity writer. Patient was calm and appeared to be smiling and have a bright affect this morning. She continues to claim that her sister is driving up from [place] today and that she will be here for tomorrow afternoon for a meeting. She claims that she is remaining very hopeful for this discharge plan. Patient claims that she has been doing well on the unit and denies any other problems overnight. She states that she is taking her medications well. Patient has been attending groups has a fair energy level and sleeping well at night. At this time patient denies any suicidal or homicidal ideations intent or plan. Denies any Auditory or visual hallucinations. Patient denies any side effects from the medications and has been compliant with meds. Mental status exam: General Appearance: Patient appears to be stated age is alert, pleasant, and cooperative. With good hygiene and grooming. Behavior: No agitated behavior. Patient is calm and directable Speech: Patient's speech is fluent and nonpressured. Mood/Affect: Mood is improving, affect is congruent and constricted. Suicidality/Homicidality: Patient denies having any suicidal or homicidal ideation intent or plan. Perceptions: Patient denies any auditory or visual hallucinations. Though content/process: There is no evidence of any delusional thought content and thought process is linear and goal-directed. Memory and concentration: AOX3, grossly intact for the purposes of this session Judgment and insight: improving mildly Assessment/Plan: Continue with current diagnosis. Patient continues to meet criteria for inpatient psychiatric admission for symptom stabilization and safety. Patient will be maintained on current psychotropic medication regimen. Monitor for medication compliance and for any psychotropic medication side effects. Will continue to monitor ongoing response to treatment. Meeting scheduled for tomorrow for discharge planning.
[2019-01-24] MEDS: MELATONIN 5 MG TABLET PO SCH (20:28)
[2019-01-24] MEDS: LORazepam 1 MG TAB PO PRN (20:29)
[2019-01-25 06:51] VITALS: BP 135/77; PULSE 79; RESP 18; TEMP 98.2
[2019-01-25] MEDS: MULTIVITAMINS, PEDIATRIC 1 EACH CHEWABLE PO SCH (08:36)
[2019-01-25] MEDS: HALOPERIDOL 1 MG TAB PO SCH (08:36)
[2019-01-25] MEDS: ACETAMINOPHEN TAB 325 MG TAB PO PRN (11:45)
--- NOTE | 2019-01-25 12:54 | P.DS ---
Providers Date of admission: 12/14/18 17:19 Expected date of discharge: 01/25/19 Attending physician: Rhys Johnson MD Consults: 12/14/18 18:52 Consult Physician Routine Consulting Provider: Erlinda White Consult Reason/Comments: H&P and medical Do you want consulting provider notified?: Yes Primary care physician: Neftaly Rose - Discharge Diagnosis(es) (1) Schizophrenia Current Visit: Yes Status: Acute Priority: High Hospital Course: Admission HPI: Patient is a 53-year-old female who was brought in under a petition by [facility] mobile crisis unit for paranoid and delusional ideation. Patient is a fair to poor historian, she states that she was brought here because her feet were swollen and she couldn't walk, patient states that she is homeless but won't stay in a [place] [facility] [place] because she thinks people there will take advantage of her. Patient reported to me that 2 weeks ago her sister evicted her due to her being "a nigger and fat" and states that her sister is polite and she is . She states that her sister took her money and affected her. Patient then stated that she had autism as a baby and got off the medications because it made her sick and she was on Ritalin and Risperdal but stopped it due to side effects she states that she stopped it in January 2018 but can't tell me who is prescribing it for her. Patient stated then that she had stomach problems on the medications and has "sensitive insides" and could almost throw up blood and so stopped the medication. 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 She then went on to complain that her sister had a friend put a file in her bloodstream when she was giving plasma and that this is all on the Internet on [employer]. Patient stated that she was on Ritalin and Risperdal for autism in the past but denies any prior psychiatric admissions, states that she has not been in treatment recently and denies having any auditory or visual hallucinations, denies any prior suicide attempts or homicidal ideation. Patient denied thought insertion or broadcasting. Patient states that she has no special robertson and has been on the streets for 14 days and not sleeping. Patient reported no other medication trials. Hospital course: Upon admission to the unit patient was displaying signs of psychosis, was bizarre and delusional. Patient gradually engaged with treatment plan and wiggins milieu. Patient got along well with other patients on the unit and followed unit protocol. Patient was compliant with the medications and although had minor side effects of having upset stomach with the medications, patient tolerated treatment well. Patient was initially started on Abilify and titrated up to 15 mg daily however patient did not respond well to this medication therefore the plan was to cross titrate with haloperidol. After cross titration patient was titrated up to 3 mg twice a day of haloperidol by mouth which stabilized her psychotic symptoms and at that point patient was given 100 mg of Haldol Decanoate on 01/11/2019, patient tolerated this well. Patient was also given an additional 25 mg IM dose on 01/13/2019 which she also tolerated well. Patient was then taken off oral supplementation of haloperidol and began decompensating in terms of her psychotic symptoms. Decision was made to place patient back on by mouth Haldol 3 mg twice a day at that time and patient recovered and improved with regards to her symptoms. Patient will be due for her next Haldol Decanoate IM injection on 02/08/2019 and should be given 150 mg IM dose at that time. Patient was advised to continue oral supplementation until then. Patient spoke of her stressors and engaged in therapy both group and individual. Patient was also seen by medical team for history and physical exam. Due to problems with no income and placement, patient had a prolonged stay in the hospital. Throughout the course of the hospitalization patient gradually improved with regards to mood, psychotic sx, delusional thinking and paranoia and also became future oriented with improved judgment and insight into her condition. On the day of discharge patient denied any suicidal or homicidal ideations intent or plan denied any auditory or visual hallucinations. Patient did not endorse any paranoia and did not endorse any delusions. Patient does not have a significant history of substance abuse however was counseled on abstaining from all substances including alcohol and marijuana.] [Patient was also counseled on the medications and need for regular compliance and was encouraged to follow-up with their outpatient appointment for mental health and also for primary care. Prior to discharge a family meeting was conducted to answer any questions and to summarize recommendations for the future and follow- up. Mental status exam: General Appearance: Patient appears to be stated age is alert, pleasant, and cooperative. With good hygiene and grooming. Behavior: No agitated behavior. Patient is calm and directable Speech: Patient's speech is fluent and nonpressured. Mood/Affect: Mood is improving, affect is congruent and constricted. Suicidality/Homicidality: Patient denies having any suicidal or homicidal ideation intent or plan. Perceptions: Patient denies any auditory or visual hallucinations. Though content/process: There is no evidence of any delusional thought content and thought process is linear and goal-directed. Memory and concentration: AOX3, grossly intact for the purposes of this session Judgment and insight: improving mildly Impression: Schizophrenia Plan: -Continue with discharge today as patient has improved and stabilized psychiatrically and no longer remains an imminent threat to herself and/or others. -Continue with medications: Patient received Haldol Decanoate 100 mg long-acting injection on 01/11/2019 and got an additional 25 mg IM dose on 01/13/2019. Patient will be due for her next Haldol decanoate dose on 02/08/2019, 150mg dose IM. She will be provided with a 1 month supply of Haldol PO supplmentation at this time - Haldol 3 mg twice a day for psychosis. -A family meeting was conducted for patient prior to discharge which included patient, social media senior associate, patient's sister and her along with temporary guardian and psychiatrist. It was explained at the meeting and they were counseled on the need for medication compliance and appropriate follow-up at mental health and also primary care for medical issues. Patient and family verbalized understanding and agreed. -Patient's sister and her will be picking up patient from the unit after discharge and will be taking patient to [place] with them where they live to have her stay with them and follow-up care will be arranged in [place]. -Guardianship will be transferred from previous temporary public guardian to sister and her . This was agreed upon by the 2 parties and patient. -Patient counseled on abstaining from recreational drugs and marijuana and alcohol. Was informed/educated on the adverse effects on their physical and mental health. -Patient was instructed to return to the hospital or seek immediate medical care if their psychiatric or medical systems do worsen or reoccur. Allergies Allergy/AdvReac Type Severity Reaction Status Date / Time metal Allergy Swelling Uncoded 12/14/18 11:48 Laboratory Results WBC 4.4 k/uL (3.8-10.6) 12/15/18 08:32 RBC 5.02 m/uL (3.80-5.40) 12/15/18 08:32 Hgb 13.3 gm/dL (11.4-16.0) 12/15/18 08:32 Hct 41.3 % (34.0-46.0) 12/15/18 08:32 MCV 82.3 fL (80.0-100.0) 12/15/18 08:32 MCH 26.6 pg (25.0-35.0) 12/15/18 08:32 MCHC 32.3 g/dL (31.0-37.0) 12/15/18 08:32 RDW 14.4 % (11.5-15.5) 12/15/18 08:32 Plt Count 328 k/uL (150-450) 12/15/18 08:32 Neutrophils % 54 % 12/15/18 08:32 Lymphocytes % 35 % 12/15/18 08:32 Monocytes % 5 % 12/15/18 08:32 Eosinophils % 4 % 12/15/18 08:32 Basophils % 0 % 12/15/18 08:32 Neutrophils # 2.4 k/uL (1.3-7.7) 12/15/18 08:32 Lymphocytes # 1.6 k/uL (1.0-4.8) 12/15/18 08:32 Monocytes # 0.2 k/uL (0-1.0) 12/15/18 08:32 Eosinophils # 0.2 k/uL (0-0.7) 12/15/18 08:32 Basophils # 0.0 k/uL (0-0.2) 12/15/18 08:32 Sodium 142 mmol/L (137-145) 01/05/19 08:11 Potassium 4.3 mmol/L (3.5-5.1) 01/05/19 08:11 Chloride 106 mmol/L (98-107) 01/05/19 08:11 Carbon Dioxide 28 mmol/L (22-30) 01/05/19 08:11 Anion Gap 8 mmol/L 01/05/19 08:11 BUN 14 mg/dL (7-17) 01/05/19 08:11 Creatinine 0.94 mg/dL (0.52-1.04) 01/05/19 08:11 Est GFR (CKD-EPI)AfAm 81 (>60 ml/min/1.73 sqM) 01/05/19 08:11 Est GFR (CKD-EPI)NonAf 71 (>60 ml/min/1.73 sqM) 01/05/19 08:11 Glucose 113 mg/dL (74-99) H 01/05/19 08:[address] Glu mg/dL 128 12/15/18 08:32 Hemoglobin A1c 6.1 % (4.0-6.0) H 12/15/18 08:32 Calcium 9.4 mg/dL (8.4-10.2) 01/05/19 08:11 Total Bilirubin 0.5 mg/dL (0.2-1.3) 12/15/18 08:32 AST 23 U/L (14-36) 12/15/18 08:32 ALT 17 U/L (9-52) 12/15/18 08:32 Alkaline Phosphatase 77 U/L (38-126) 12/15/18 08:32 Total Protein 7.0 g/dL (6.3-8.2) 12/15/18 08:32 Albumin 3.8 g/dL (3.5-5.0) 12/15/18 08:32 Triglycerides 66 mg/dL (<150) 12/15/18 08:32 Cholesterol 151 mg/dL (<200) 12/15/18 08:32 LDL Cholesterol, Calc 81 mg/dL (0-99) 12/15/18 08:32 HDL Cholesterol 57 mg/dL (40-60) 12/15/18 08:32 Vitamin B12 923.0 pg/mL (200.0-944.0) 01/05/19 08:11 TSH 1.330 mIU/L (0.465-4.680) 12/15/18 08:32 Urine Color Light Yellow 12/20/18 14:00 Urine Appearance Cloudy (Clear) H 12/20/18 14:00 Urine pH 7.0 (5.0-8.0) 12/20/18 14:00 Ur Specific [place] 1.016 (1.001-1.035) 12/20/18 14:00 Urine Protein Negative (Negative) 12/20/18 14:00 Urine Glucose (UA) Negative (Negative) 12/20/18 14:00 Urine Ketones Negative (Negative) 12/20/18 14:00 Urine Blood Negative (Negative) 12/20/18 14:00 Urine Nitrite Negative (Negative) 12/20/18 14:00 Urine Bilirubin Negative (Negative) 12/20/18 14:00 Urine Urobilinogen <2.0 mg/dL (<2.0) 12/20/18 14:00 Ur Leukocyte Esterase Small (Negative) H 12/20/18 14:00 Urine RBC 1 /hpf (0-5) 12/20/18 14:00 Urine WBC 6 /hpf (0-5) H 12/20/18 14:00 Ur Squamous Epith Cells 9 /hpf (0-4) H 12/20/18 14:00 Urine Bacteria Occasional /hpf (None) H 12/20/18 14:00 Urine Mucus Rare /hpf (None) H 12/20/18 14:00 Urine Opiates Screen Not Detected (NotDetected) 12/14/18 11:55 Ur Oxycodone Screen Not Detected (NotDetected) 12/14/18 11:55 Urine Methadone Screen Not Detected (NotDetected) 12/14/18 11:55 Ur Propoxyphene Screen Not Detected (NotDetected) 12/14/18 11:55 Ur Barbiturates Screen Not Detected (NotDetected) 12/14/18 11:55 U Tricyclic Antidepress Not Detected (NotDetected) 12/14/18 11:55 Ur Phencyclidine Scrn Not Detected (NotDetected) 12/14/18 11:55 Ur Amphetamines Screen Not Detected (NotDetected) 12/14/18 11:55 U Methamphetamines Scrn Not Detected (NotDetected) 12/14/18 11:55 U Benzodiazepines Scrn Not Detected (NotDetected) 12/14/18 11:55 Urine Cocaine Screen Not Detected (NotDetected) 12/14/18 11:55 U Marijuana (THC) Screen Not Detected (NotDetected) 12/14/18 11:55 Vital Signs Temp 98.2 F 01/25/19 06:50 Pulse 79 01/25/19 06:50 Resp 18 01/25/19 06:50 BP 135/77 01/25/19 06:50 Pulse Ox 99 12/14/18 17:56 Intake & Output 01/24/19 01/25/19 01/25/19 18:59 06:59 18:59 Weight 103.2 kg Patient Condition at Discharge: Stable Plan - Discharge Summary Discharge Rx Participant: No New Discharge Prescriptions: New Haloperidol [Haldol] 3 mg PO BID #28 tab Melatonin 5 mg PO HS #28 tablet Multivitamins, Pediatric Chew [Poly--Vanessa Chew (formulary)] 1 each PO DAILY #28 chew Haloperidol Decanoate [Haldol D] 150 mg IM QMONTH #1 vial Discontinued Ibuprofen [Motrin Ib] 400 - 600 mg PO Q6H PRN PRN Reason: Pain Discharge Medication List Haloperidol Decanoate [Haldol D] 150 mg IM QMONTH #1 vial 01/25/19 [Rx] Haloperidol [Haldol] 3 mg PO BID #28 tab 01/25/19 [Rx] Melatonin 5 mg PO HS #28 tablet 01/25/19 [Rx] Multivitamins, Pediatric Chew [Poly--Vanessa Chew (formulary)] 1 each PO DAILY #28 chew 01/25/19 [Rx] Follow up Appointment(s)/Referral(s): [facility] [Other] - 02/05/19 1:00 pm (Intake fee will be 93.00 for intake if insurance is not accepted) Neftaly Rose MD [Primary Care Provider] - 1-2 days Activity/Diet/Wound Care/Special Instructions: Keep your follow up appointments as scheduled. Continue medications as prescribed. No alcohol or street drugs not prescribed by your physician. When you need refill of your medications contact your out patient psychiatrist or primary care physician. No access to guns or weapons. Crisis line if needed . Discharge Disposition: HOME SELF-CARE
== END 2019-01-25 13:10 | disposition home or self-care (01) | DRG 885 ==
LOC: EC 11:13 → 3MHU 17:19
PROVIDERS: ADMIT Psychiatry & Neurology Psychiatry; ATTEND Psychiatry & Neurology Psychiatry
DX: F20.9 Schizophrenia, unspecified (principal); F41.9 Anxiety disorder, unspecified; B35.1 Tinea unguium; F84.5 Asperger's syndrome; G89.29 Other chronic pain; K59.00 Constipation, unspecified; Z59.0 Homelessness; Z81.8 Family history of other mental and behavioral disorders; Z96.652 Presence of left artificial knee joint; Z62.819 Personal history of unspecified abuse in childhood; Z91.83 Wandering in diseases classified elsewhere; L30.9 Dermatitis, unspecified; R03.0 Elevated blood-pressure reading, without diagnosis of hypertension
CPT/HCPCS: 80048; 80053; 80061; 80306; 81001; 82075; 82607; 83036; 84443; 85025; 93005; 99285